=== PATIENT | female | born 1980 | race Caucasian/White ===

== ENCOUNTER 2017-04-27 06:32 | Day surgery (SDC) | payer BC, OTHER ==
--- NOTE | 2017-04-27 07:13 | PCM.PREANE ---
Preanesthetic Assessment - Anesthesia/Transfusion/Family Hx Anesthesia History: Prior Anesthesia Without Reaction Family History of Anesthesia Reaction: No Transfusion History: No Prior Transfusion(s) Intubation History: Unknown - Review of Systems General: No Symptoms Pulmonary: No Symptoms Cardiovascular: No Symptoms Gastrointestinal: No Symptoms Neurological: No Symptoms Other: Reports: None - Physical Assessment Height: 1.68 m Weight: 77.564 kg ASA Class: 1 Mental Status: Alert & Oriented x3 Airway Class: Mallampati = 2 Dentition: Reports: Normal Dentition Thyro-Mental Finger Breadths: 3 Mouth Opening Finger Breadths: 2 ROM/Head Extension: Full Lungs: Clear to Auscultation, Normal Respiratory Effort Cardiovascular: Regular Rate, Regular Rhythm - Allergies Allergies/Adverse Reactions: Allergies Allergy/AdvReac Type Severity Reaction Status Date / Time No Known Allergies Allergy Verified 07/04/15 19:12 - Blood Blood Available: No - Anesthesia Plan Pre-Op Medication Ordered: None - Acknowledgements Anesthesia Type Planned: General Anesthesia Pt an Appropriate Candidate for the Planned Anesthesia: Yes Alternatives and Risks of Anesthesia Discussed w Pt/Guardian: Yes Pt/Guardian Understands and Agrees with Anesthesia Plan: Yes PreAnesthesia Questionnaire HEENT History: Reports: None Cardiovascular History: Reports: Other (See Below) Other Cardiovascular History: hx of palpatations Respiratory History: Reports: None Gastrointestinal History: Reports: None Genitourinary History: Reports: UTI, Recurrent HATCH BOSS History: Reports: , Other (See Below) Other OB/BYN History: vaginal cyst excision. elective AB Musculoskeletal History: Reports: Neck Pain, Chronic Neurological History: Reports: Other (See Below) Other Neuro History: headaches caused from neck pain Psychiatric History: Reports: None Endocrine/Metabolic History: Reports: None Hematologic History: Reports: None Immunologic History: Reports: None Oncologic (Cancer) History: Reports: None Dermatologic History: Reports: None - Infectious Disease History Infectious Disease History: Reports: None - Past Surgical History Head Surgeries/Procedures: Reports: None HEENT Surgical History: Reports: Cataract Surgery, Eye Surgery Other HEENT Surgeries/Procedures: 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 [No Known Home Meds] 06/17/15 [History]
[2017-04-27] MEDS ORDERED: Lactated Ringers 1,000 ML IV SCH (07:15)
[2017-04-27] MEDS ORDERED: Midazolam 1 MG/ML 2 ML SDV ONE (07:23)
[2017-04-27] MEDS ORDERED: Ondansetron 4 MG/2 ML SDV ONE (07:23)
[2017-04-27] MEDS ORDERED: fentaNYL 100 MCG/2 ML SDV ONE (07:23)
[2017-04-27] MEDS ORDERED: Lidocaine 2% 5 ML SDV ONE (07:23)
[2017-04-27] MEDS ORDERED: Propofol 200 MG/20 ML SDV ONE (07:23)
[2017-04-27] MEDS ORDERED: Sodium Chloride 0.9% 10 ML Syringe FLUSH PRN (07:40)
[2017-04-27] MEDS ORDERED: Sodium Chloride 0.9% 2.5 ML Syringe FLUSH PRN (07:40)
--- NOTE | 2017-04-27 08:35 | PCM.OPNOTE ---
- General Post-Op/Procedure Note Date of Surgery/Procedure: 04/27/17 Operative Procedure(s): Suction D&C Findings: Products of conception Pre Op Diagnosis: 7 week missed Post-Op Diagnosis: Same Anesthesia Technique: General LMA Primary Surgeon: Nina Vee Fluid Replacement, Intraop: 1,500 EBL in mLs: 225 Condition: Good Free Text/Narrative:: Dictation [id number]
[2017-04-27 11:05] VITALS: BP 108/76
--- NOTE | 2017-04-27 15:06 | OR ---
SURGEON: Nina Vee M.D. DATE OF PROCEDURE: 04/27/2017 PREOPERATIVE DIAGNOSIS: Seven week missed . POSTOPERATIVE DIAGNOSIS: Seven week missed . PROCEDURE: Suction dilation and curettage. ESTIMATED BLOOD LOSS: 225 mL. FLUIDS: 1500 mL crystalloid. ANESTHESIA: General LMA. COMPLICATIONS: None known. FINDINGS: Products of conception. DISPOSITION: The patient to PACU in stable. INDICATIONS: Candy is a 36-year-old female, who was seen in clinic earlier this week for a new OB evaluation. Ultrasound identified a 7 week 5 day demise. She had been seen a couple of weeks earlier in the for bleeding and at that time, had a 7 week 1 day fetus with cardiac activity. The patient does note that she has not been feeling as sick or ill as usual and not as much breast tenderness. The findings are consistent with a first-trimester demise. Options were then discussed for further management and she opted to proceed with surgical intervention in the form of suction D and C. Risks of procedure have been discussed with her and proper consent obtained. DESCRIPTION OF PROCEDURE: The patient was taken to the operating room, where she underwent general LMA. She was placed in modified dorsal lithotomy position. She was prepped and draped in the usual sterile manner. SCDs to the lower extremities. Bladder was drained. A time-out was performed. Speculum was introduced in the vagina. Anterior of the cervix was grasped with an Allis clamp. The cervix easily dilated to 8 mm. Using 8-mm curved curette, this was introduced in the uterine cavity to the fundus and with suction being applied, the uterine cavity was cleared of products of conception. Gentle sharp curettage was now performed. It felt that the uterus was satisfactorily evacuated. All specimens will go to Pathology. Instruments removed from the vagina. Hemostasis appeared evident. Sponge and instrument count was correct x2. The patient tolerated the procedure well. She will go to PACU in stable condition. RAFAEL / TRISTAN /[id number]
== END 2017-04-27 10:30 | disposition home or self-care (01) ==
LOC: MW.SDS 06:32
PROVIDERS: ATTEND Obstetrics & Gynecology
DX: O43.811 Placental infarction, first trimester (principal); O02.1 Missed abortion; F53 Mental and behavioral disorders associated with the puerperium, not elsewhere classified; Z79.899 Other long term (current) drug therapy; Z87.891 Personal history of nicotine dependence; Z98.890 Other specified postprocedural states; Z3A.01 Less than 8 weeks gestation of pregnancy
CPT/HCPCS: 36415; 59820; 85027; 88305; J2250; J2405; J3010; J7120; 01965; J2704

== ENCOUNTER 2017-05-27 00:45 | Emergency (ER) | payer BC, OTHER ==
[2017-05-27] MEDS ORDERED: Sodium Chloride 0.9% 2.5 ML Syringe FLUSH PRN (00:48)
[2017-05-27] MEDS ORDERED: Sodium Chloride 0.9% 10 ML Syringe FLUSH PRN (00:48)
[2017-05-27] MEDS ORDERED: Sodium Chloride 0.9% 1,000 ML IV ONE (00:48)
--- NOTE | 2017-05-27 00:53 | EDM.PDOC ---
ED HPI GENERAL MEDICAL PROBLEM - General Chief Complaint: Drug or Alcohol Abuse Stated Complaint: AMBULANCE Time Seen by Provider: 05/27/17 00:46 - History of Present Illness INITIAL COMMENTS - FREE TEXT/NARRATIVE: HISTORY AND PHYSICAL: History of present illness: The patient is a 36 y/o female who presents via EMS after ingesting 12 tablets of Lexapro 10 mg sometime earlier this evening. The boyfriend gave EMS all information and called the paramedics. The patient did tell police when they were there that she is "not worth anything" and that is why she took the pills. The patient had the Lexapro refilled yesterday. When police and EMS arrived she was somewhat drowsy and combative. But that has subsided. The prescription was given to her by Dr. Vee and was filled yesterday on May 25. The whole prescription was for 30 tablets. The boyfriend did state that the patient did drink some alcohol as well as evening and there was no vomiting at the scene. There was no trauma per EMS and the patient was found in bed. As he said initially she was somewhat combative and they contacted me or possible medications to relax her but currently she is not combative and actually not verbal.. She is not offering any history and is not following commands. She is maintaining her airway. Further history as to why the patient took this overdose is unclear at this point. Please note that paramedics brought the pill bottle of Lexapro and the remainder of the pills that were prescribed are in there. Review of systems: As per history of present illness and below otherwise all systems reviewed and negative. Past medical history: As per history of present illness and as reviewed below otherwise noncontributory. Surgical history: As per history of present illness and as reviewed below otherwise noncontributory. Social history: No reported history of drug or alcohol abuse. Family history: As per history of present illness and as reviewed below otherwise noncontributory. Physical exam: Gen.: Well-developed well-nourished overweight female who is nontoxic and vital signs were noted by me. She is maintaining her airway without difficulty and resists me opening her eyes. HEENT: Atraumatic, normocephalic, pupils reactive, negative for conjunctival pallor or scleral icterus, mucous membranes moist, throat clear, neck supple, nontender, trachea midline. Lungs: Clear to auscultation, breath sounds equal bilaterally, chest nontender. Heart: S1S2, regular, negative for clicks, rubs, or JVD. Abdomen: Soft, nondistended, nontender. Negative for masses or hepatosplenomegaly. NABS Pelvis: Stable nontender. Genitourinary: Deferred. Rectal: Deferred. Extremities: Atraumatic, negative for cords or calf pain. Neurovascular unremarkable. No visible or palpable deformities Neuro: Drowsy but maintaining her airway and does resist certain evaluation. She has no spontaneous movement of her extremities but tone is normal throughout. Further exam is unable to be performed at this time . Skin: No diaphoresis normal turgor and no evidence of any overt rashes or lesions Diagnostics: EKG UA UCG UDS CBC CMP Tylenol and aspirin levels alcohol level TSH Therapeutics: IV O2 monitor IV fluids We'll contact poison control Poison control was contacted per nursing and they agree with my care plan and asked us to just observe for her somnolence respiratory issues and seizures. They recommended overnight medical observation 0120: Dr Flores was notified of this patient and will pass on the case information to Dr. Vee who is the prescribing physician for the Lexapro. 0151: Case was discussed with our hospitalist Dr. Haines to see if he would observe her medically and then plan for transfer tomorrow and he feels that as she will definitely need psychiatric transfer he would prefer that we just do the transfer now so that can care for her both medically and psychiatrically. 0155: Case was discussed with Dr. Mireles in the ED at [facility] who accepts the patient for transfer. He is aware that poison control recommended overnight medical observation and although she is moving around more spontaneously and more responsive to pain and stimulation she is still very drowsy. She is stable for ground transfer. LINO was performed by me although the [employer] police that came with her offered to do so. I will continue to monitor all testing results and recontact Dr. Mireles with any abnormalities that are significant. Impression: Intentional drug overdose with Lexapro Definitive disposition and diagnosis as appropriate pending reevaluation and review of above. unable to obtain Pain Score (Numeric/FACES): 0 - Related Data Allergies Allergy/AdvReac Type Severity Reaction Status Date / Time No Known Allergies Allergy Verified 05/27/17 00:47 Home Meds: Home Meds . 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 elective AB Musculoskeletal History: Reports: Neck Pain, Chronic Neurological History: Reports: Other (See Below) Other Neuro History: headaches caused from neck pain Psychiatric History: Reports: None Endocrine/Metabolic History: Reports: None Hematologic History: Reports: None Immunologic History: Reports: None Oncologic (Cancer) History: Reports: None Dermatologic History: Reports: None - Infectious Disease History Infectious Disease History: Reports: None - Past Surgical History Head Surgeries/Procedures: Reports: None HEENT Surgical History: Reports: Cataract Surgery, Eye Surgery Other HEENT Surgeries/Procedures: 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, cataract surgery approx 4 yrs ago Cardiovascular Surgical History: Reports: None GI Surgical History: Reports: None Female Surgical History: Reports: Other (See Below) Other Female Surgeries/Procedures: cyst removed from vaginal area Endocrine Surgical History: Reports: None Neurological Surgical History: Reports: None Musculoskeletal Surgical History: Reports: None Oncologic Surgical History: Reports: None Social & Family History - Family History Family Medical History: Noncontributory Cardiac: Reports: CAD, Hypertension, Other (See Below) Other Cardiac Family History: heart problems (patient dont know specificts of it ) Respiratory: Reports: None GI: Reports: None : Reports: None OBGYN: Reports: None Musculoskeletal: Reports: None Endocrine/Metabolic: Reports: Diabetes, type II - Tobacco Use Smoking Status *Q: Former Smoker Used Tobacco, but Quit: Yes Month Tobacco Last Used: quit smoking 3 months ago - Recreational Drug Use Recreational Drug Use: No ED ROS GENERAL - Review of Systems Review Of Systems: ROS reveals no pertinent complaints other than HPI. ED EXAM, GENERAL - Physical Exam Exam: See Below (See dictation) Course - Vital Signs Last Recorded V/S: Last Vital Signs Temp 36.1 C 05/27/17 00:47 Pulse 95 05/27/17 01:19 Resp 18 05/27/17 01:19 BP 124/90 05/27/17 01:19 Pulse Ox 95 05/27/17 01:19 - Orders/Labs/Meds Orders: Active Orders 24 hr Category Date Time Status Cardiac Monitoring [RC] . DIRECTED Care 05/27/17 00:47 Active EKG Documentation Completion [RC] STAT Care 05/27/17 00:47 Active Oxygen Therapy, ED [RC] ASDIRECTED Care 05/27/17 00:47 Active Pulse Oximetry [RC] ASDIRECTED Care 05/27/17 00:47 Active ACETAMINOPHEN [CHEM] Stat Lab 05/27/17 01:00 Received COMPREHENSIVE METABOLIC PN,CMP [CHEM] Stat Lab 05/27/17 01:00 Received ETHANOL BLOOD MEDICAL [CHEM] Stat Lab 05/27/17 01:00 Received SALICYLATE [CHEM] Stat Lab 05/27/17 01:00 Received TSH [CHEM] Stat Lab 05/27/17 01:00 Received Sodium Chloride 0.9% [Saline Flush] Med 05/27/17 00:48 Active 10 ml FLUSH ASDIRECTED PRN Sodium Chloride 0.9% [Saline Flush] Med 05/27/17 00:48 Active 2.5 ml FLUSH ASDIRECTED PRN Saline Lock Insert [OM.PC] Stat Oth 05/27/17 00:47 Ordered Medication Orders Sodium Chloride (Saline Flush) 10 ml FLUSH ASDIRECTED PRN PRN Reason: Keep Vein Open Sodium Chloride (Saline Flush) 2.5 ml FLUSH ASDIRECTED PRN PRN Reason: Keep Vein Open Labs: Laboratory Tests 05/27/17 05/27/17 05/27/17 Range/Units 01:00 01:20 01:20 WBC 5.65 (4.0-11.0) K/uL RBC 4.15 L (4.30-5.90) M/uL Hgb 12.6 (12.0-16.0) g/dL Hct 38.8 (36.0-46.0) % MCV 93.5 (80.0-98.0) fL MCH 30.4 (27.0-32.0) pg MCHC 32.5 (31.0-37.0) g/dL RDW Std Deviation 43.0 (28.0-62.0) fl RDW Coeff of Mindy 13 (11.0-15.0) % Plt Count 226 (150-400) K/uL MPV 8.10 (7.40-12.00) fL Neut % (Auto) 48.7 (48.0-80.0) % Lymph % (Auto) 37.5 (16.0-40.0) % [place] % (Auto) 10.1 (0.0-15.0) % Eos % (Auto) 3.5 (0.0-7.0) % Baso % (Auto) 0.2 (0.0-1.5) % Neut # (Auto) 2.8 (1.4-5.7) K/uL Lymph # (Auto) 2.1 (0.6-2.4) K/uL [place] # (Auto) 0.6 (0.0-0.8) K/uL Eos # (Auto) 0.2 (0.0-0.7) K/uL Baso # (Auto) 0.0 (0.0-0.1) K/uL Urine Color Urine Appearance Urine pH (5.0-8.0) Ur Specific [place] (1.001-1.035) Urine Protein (NEGATIVE) mg/dL Urine Glucose (UA) (NEGATIVE) mg/dL Urine Ketones (NEGATIVE) mg/dL Urine Occult Blood (NEGATIVE) Urine Nitrite (NEGATIVE) Urine Bilirubin (NEGATIVE) Urine Urobilinogen (<2.0) EU/dL Ur Leukocyte Esterase (NEGATIVE) Urine RBC (0-2/HPF) Urine WBC (0-5/HPF) Ur Epithelial Cells (NONE-FEW) Urine Bacteria (NEGATIVE) Urine HCG, Qual NEGATIVE (NEGATIVE) Urine Opiates Screen NEGATIVE (NEGATIVE) Ur Oxycodone Screen NEGATIVE (NEGATIVE) Urine Methadone Screen NEGATIVE (NEGATIVE) Ur Barbiturates Screen NEGATIVE (NEGATIVE) Ur Phencyclidine Scrn NEGATIVE (NEGATIVE) Ur Amphetamine Screen NEGATIVE (NEGATIVE) U Methamphetamines Scrn NEGATIVE (NEGATIVE) U Benzodiazepines Scrn NEGATIVE (NEGATIVE) U Cocaine Metab Screen NEGATIVE (NEGATIVE) U Marijuana (THC) Screen NEGATIVE (NEGATIVE) 05/27/17 Range/Units 01:20 WBC (4.0-11.0) K/uL RBC (4.30-5.90) M/uL Hgb (12.0-16.0) g/dL Hct (36.0-46.0) % MCV (80.0-98.0) fL MCH (27.0-32.0) pg MCHC (31.0-37.0) g/dL RDW Std Deviation (28.0-62.0) fl RDW Coeff of Mindy (11.0-15.0) % Plt Count (150-400) K/uL MPV (7.40-12.00) fL Neut % (Auto) (48.0-80.0) % Lymph % (Auto) (16.0-40.0) % [place] % (Auto) (0.0-15.0) % Eos % (Auto) (0.0-7.0) % Baso % (Auto) (0.0-1.5) % Neut # (Auto) (1.4-5.7) K/uL Lymph # (Auto) (0.6-2.4) K/uL [place] # (Auto) (0.0-0.8) K/uL Eos # (Auto) (0.0-0.7) K/uL Baso # (Auto) (0.0-0.1) K/uL Urine Color YELLOW Urine Appearance CLEAR Urine pH 6.0 (5.0-8.0) Ur Specific [place] <= 1.005 (1.001-1.035) Urine Protein NEGATIVE (NEGATIVE) mg/dL Urine Glucose (UA) NEGATIVE (NEGATIVE) mg/dL Urine Ketones NEGATIVE (NEGATIVE) mg/dL Urine Occult Blood NEGATIVE (NEGATIVE) Urine Nitrite NEGATIVE (NEGATIVE) Urine Bilirubin NEGATIVE (NEGATIVE) Urine Urobilinogen 0.2 (<2.0) EU/dL Ur Leukocyte Esterase NEGATIVE (NEGATIVE) Urine RBC 0-1 (0-2/HPF) Urine WBC 0-1 (0-5/HPF) Ur Epithelial Cells RARE (NONE-FEW) Urine Bacteria RARE (NEGATIVE) Urine HCG, Qual (NEGATIVE) Urine Opiates Screen (NEGATIVE) Ur Oxycodone Screen (NEGATIVE) Urine Methadone Screen (NEGATIVE) Ur Barbiturates Screen (NEGATIVE) Ur Phencyclidine Scrn (NEGATIVE) Ur Amphetamine Screen (NEGATIVE) U Methamphetamines Scrn (NEGATIVE) U Benzodiazepines Scrn (NEGATIVE) U Cocaine Metab Screen (NEGATIVE) U Marijuana (THC) Screen (NEGATIVE) Meds: Medications Generic Name Dose Route Start Last Admin Trade Name Freq PRN Reason Stop Dose Admin Sodium Chloride 10 ml 05/27/17 00:48 Saline Flush FLUSH ASDIRECTED PRN Keep Vein Open Sodium Chloride 2.5 ml 05/27/17 00:48 Saline Flush FLUSH ASDIRECTED PRN Keep Vein Open Discontinued Medications Generic Name Dose Route Start Last Admin Trade Name Berhane PRN Reason Stop Dose Admin Sodium Chloride 1,000 mls @ 999 mls/hr 05/27/17 00:48 05/27/17 01:04 Normal Saline IV 05/27/17 01:48 999 mls/hr STAT ONE Administration Departure - Departure Time of Disposition: 01:59 Disposition: DC/Tfer to Acute Hospital 02 Condition: Good Clinical Impression: Drug overdose, intentional Qualifiers: Encounter type: initial encounter Qualified Code(s): T50.902A - Poisoning by unspecified drugs, medicaments and biological substances, intentional self-harm , initial encounter - Discharge Information Referrals: PCP,None [Primary Care Provider] - Forms: ED Department Discharge - My Orders Last 24 Hours: My Active Orders 05/27/17 00:47 Cardiac Monitoring [RC] . DIRECTED EKG Documentation Completion [RC] STAT Oxygen Therapy, ED [RC] ASDIRECTED Pulse Oximetry [RC] ASDIRECTED Saline Lock Insert [OM.PC] Stat 05/27/17 00:48 Sodium Chloride 0.9% [Saline Flush] 10 ml FLUSH ASDIRECTED PRN Sodium Chloride 0.9% [Saline Flush] 2.5 ml FLUSH ASDIRECTED PRN 05/27/17 01:00 ACETAMINOPHEN [CHEM] Stat COMPREHENSIVE METABOLIC PN,CMP [CHEM] Stat ETHANOL BLOOD MEDICAL [CHEM] Stat SALICYLATE [CHEM] Stat TSH [CHEM] Stat - Assessment/Plan Last 24 Hours: My Active Orders 05/27/17 00:47 Cardiac Monitoring [RC] . DIRECTED EKG Documentation Completion [RC] STAT Oxygen Therapy, ED [RC] ASDIRECTED Pulse Oximetry [RC] ASDIRECTED Saline Lock Insert [OM.PC] Stat 05/27/17 00:48 Sodium Chloride 0.9% [Saline Flush] 10 ml FLUSH ASDIRECTED PRN Sodium Chloride 0.9% [Saline Flush] 2.5 ml FLUSH ASDIRECTED PRN 05/27/17 01:00 ACETAMINOPHEN [CHEM] Stat COMPREHENSIVE METABOLIC PN,CMP [CHEM] Stat ETHANOL BLOOD MEDICAL [CHEM] Stat SALICYLATE [CHEM] Stat TSH [CHEM] Stat
[2017-05-27 01:32] LABS: ACETAMINOPHEN < 3.0 ug/mL; CHLORIDE,CL 107 mmol/L (98-110); SODIUM,NA 138 mmol/L (136-146)
[2017-05-27] MEDS ORDERED: Dextrose 5%-0.45% NaCl 1,000 ML IV SCH (02:30)
[2017-05-27 02:47] VITALS: BP 119/75
== END 2017-05-27 02:40 ==
LOC: MW.ED 00:45
DX: T43.222A Poisoning by selective serotonin reuptake inhibitors, intentional self-harm, initial encounter (principal); F10.129 Alcohol abuse with intoxication, unspecified; Z87.891 Personal history of nicotine dependence
CPT/HCPCS: 36415; 80053; 80305; 81001; 81025; 84443; 85025; 96360; 99285; G0480; J7040; J7042

== ENCOUNTER 2017-11-06 18:48 | Emergency (ER) | payer BC, OTHER ==
[2017-11-06 19:13] VITALS: BP 130/86
[2017-11-06] MEDS ORDERED: Phenazopyridine 200 MG Tab PO ONE (19:21)
--- NOTE | 2017-11-06 19:21 | EDM.PDOC ---
ED HPI GENERAL MEDICAL PROBLEM - General Chief Complaint: Genitourinary Problem Stated Complaint: UTI Time Seen by Provider: 11/06/17 19:10 - History of Present Illness INITIAL COMMENTS - FREE TEXT/NARRATIVE: HISTORY AND PHYSICAL: History of present illness: The patient is a healthy 36 y/o female who presents with a three-day history of dysuria frequency urgency CONSISTENT with the UTI and she has had a history of UTIs in the past with the last one being about a year ago. The patient denies any fevers chills flank pain abdominal pain vomiting or diarrhea but does have pressure in the suprapubic area. She has a Mirena in place and has no abdominal surgical history. She has been pushing fluids and eating normally. The patient started [id number] Azo last evening but does not feel that that's helping very much. She does not have a local provider and usually seeks care at [facility] Review of systems: As per history of present illness and below otherwise all systems reviewed and negative. Past medical history: As per history of present illness and as reviewed below otherwise noncontributory. Surgical history: As per history of present illness and as reviewed below otherwise noncontributory. Social history: No reported history of drug or alcohol abuse. Family history: As per history of present illness and as reviewed below otherwise noncontributory. Physical exam: General: Well-developed well-nourished female who is nontoxic and vital signs are reviewed by me HEENT: Atraumatic, normocephalic, negative for conjunctival pallor or scleral icterus, mucous membranes moist, throat clear, neck supple, nontender, trachea midline. Lungs: Clear to auscultation, breath sounds equal bilaterally, chest nontender. Heart: S1S2, regular rate and rhythm no overt murmurs Abdomen: Soft, nondistended, nontender. NABS Negative for costovertebral tenderness. Pelvis: Deferred Genitourinary: Deferred. Rectal: Deferred. Extremities: Atraumatic, negative for cords or calf pain. Neurovascular unremarkable. Neuro: Awake, alert, oriented. Cranial nerves II through XII unremarkable. Cerebellum unremarkable. Motor and sensory unremarkable throughout. Exam nonfocal. Diagnostics: UA UCG urine culture Therapeutics: She requests Pyridium Impression: UTI Definitive disposition and diagnosis as appropriate pending reevaluation and review of above. 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 elective AB Musculoskeletal History: Reports: Neck Pain, Chronic Neurological History: Reports: Other (See Below) Other Neuro History: headaches caused from neck pain Psychiatric History: Reports: None Endocrine/Metabolic History: Reports: None Hematologic History: Reports: None Immunologic History: Reports: None Oncologic (Cancer) History: Reports: None Dermatologic History: Reports: None - Infectious Disease History Infectious Disease History: Reports: None - Past Surgical History Head Surgeries/Procedures: Reports: None HEENT Surgical History: Reports: Cataract Surgery, Eye Surgery Other HEENT Surgeries/Procedures: 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, cataract surgery approx 4 yrs ago Cardiovascular Surgical History: Reports: None GI Surgical History: Reports: None Female Surgical History: Reports: Other (See Below) Other Female Surgeries/Procedures: cyst removed from vaginal area Endocrine Surgical History: Reports: None Neurological Surgical History: Reports: None Musculoskeletal Surgical History: Reports: None Oncologic Surgical History: Reports: None Social & Family History - Family History Family Medical History: Noncontributory Cardiac: Reports: CAD, Hypertension, Other (See Below) Other Cardiac Family History: heart problems (patient dont know specificts of it ) Respiratory: Reports: None GI: Reports: None : Reports: None OBGYN: Reports: None Musculoskeletal: Reports: None Endocrine/Metabolic: Reports: Diabetes, type II - Tobacco Use Smoking Status *Q: Light Tobacco Smoker Years of Tobacco use: 5 Packs/Tins Daily: 0.1 - Recreational Drug Use Recreational Drug Use: No ED ROS GENERAL - Review of Systems Review Of Systems: ROS reveals no pertinent complaints other than HPI. ED EXAM, GENERAL - Physical Exam Exam: See Below (see dictation) Course - Vital Signs Last Recorded V/S: Last Vital Signs Temp 36.7 C 11/06/17 19:12 Pulse 100 11/06/17 19:12 Resp 18 11/06/17 19:12 BP 130/86 11/06/17 19:12 Pulse Ox 95 11/06/17 19:12 - Orders/Labs/Meds Orders: Active Orders 24 hr Category Date Time Status CULTURE URINE [RM] Stat Lab 11/06/17 19:19 Ordered HCG QUALITATIVE,URINE [URCHEM] Stat Lab 11/06/17 19:19 Ordered UA W/MICROSCOPIC [URIN] Stat Lab 11/06/17 19:19 Ordered Labs: Laboratory Tests 11/06/17 11/06/17 Range/Units 19:19 19:19 Urine Color YELLOW Urine Appearance CLEAR Urine pH 5.5 (5.0-8.0) Ur Specific [place] <= 1.005 (1.001-1.035) Urine Protein >=300 (NEGATIVE) mg/dL Urine Glucose (UA) 100 H (NEGATIVE) mg/dL Urine Ketones NEGATIVE (NEGATIVE) mg/dL Urine Occult Blood MODERATE (NEGATIVE) Urine Nitrite POSITIVE H (NEGATIVE) Urine Bilirubin NEGATIVE (NEGATIVE) Urine Urobilinogen 4.0 H (<2.0) EU/dL Ur Leukocyte Esterase MODERATE (NEGATIVE) Urine RBC 1-2 (0-2/HPF) Urine WBC 30-40 (0-5/HPF) Ur Epithelial Cells FEW (NONE-FEW) Urine Bacteria FEW (NEGATIVE) Urine HCG, Qual NEGATIVE (NEGATIVE) Meds: Medications Discontinued Medications Generic Name Dose Route Start Last Admin Trade Name Freq PRN Reason Stop Dose Admin Phenazopyridine HCl 200 mg 11/06/17 19:21 11/06/17 19:30 Pyridium PO 11/06/17 19:22 200 mg ONETIME ONE Administration Departure - Departure Time of Disposition: 19:43 Disposition: Home, Self-Care 01 Condition: Good Clinical Impression: UTI, Urinary tract infectious disease - Discharge Information Instructions: Urinary Tract Infection, Adult, [id number] Referrals: PCP,None [Primary Care Provider] - Forms: ED Department Discharge Additional Instructions: The following information is given to patients seen in the emergency department who are being discharged to home. This information is to outline your options for follow-up care. We provide all patients seen in our emergency department with a follow-up referral. The need for follow-up, as well as the timing and circumstances, are variable depending upon the specifics of your emergency department visit. If you don't have a primary care physician on staff, we will provide you with a referral. We always advise you to contact your personal physician following an emergency department visit to inform them of the circumstance of the visit and for follow-up with them and/or the need for any referrals to a consulting specialist. The emergency department will also refer you to a specialist when appropriate. This referral assures that you have the opportunity for followup care with a specialist. All of these measure are taken in an effort to provide you with optimal care, which includes your followup. Under all circumstances we always encourage you to contact your private physician who remains a resource for coordinating your care. When calling for followup care, please make the office aware that this follow-up is from your recent emergency room visit. If for any reason you are refused follow-up, please contact the [facility] emergency department at and ask to speak to the emergency department charge nurse. [facility] Primary care- [place] [address] Push hydration and take all medications as prescribed. You may also use over-the -counter Tylenol or ibuprofen for pain. Please schedule a follow-up appointment at your clinic or contact our clinic for follow-up in the next few days and return to ER as needed and as discussed - My Orders Last 24 Hours: My Active Orders 11/06/17 19:19 CULTURE URINE [RM] Stat HCG QUALITATIVE,URINE [URCHEM] Stat UA W/MICROSCOPIC [URIN] Stat - Assessment/Plan Last 24 Hours: My Active Orders 11/06/17 19:19 CULTURE URINE [RM] Stat HCG QUALITATIVE,URINE [URCHEM] Stat UA W/MICROSCOPIC [URIN] Stat
== END 2017-11-06 19:49 | disposition home or self-care (01) ==
LOC: MW.ED 18:48
DX: N39.0 Urinary tract infection, site not specified (principal); F17.210 Nicotine dependence, cigarettes, uncomplicated
CPT/HCPCS: 81001; 81025; 87086; 87088; 87186; 99283; A9270

== ENCOUNTER 2018-02-04 10:48 | Emergency (ER) | payer BC, OTHER ==
[2018-02-04] MEDS ORDERED: diphenhydrAMINE 50 MG/ML SDV IVPUSH ONE (11:20)
[2018-02-04] MEDS ORDERED: Ketorolac 30 MG/ML SDV IVPUSH ONE (11:20)
[2018-02-04] MEDS ORDERED: Sodium Chloride 0.9% 1,000 ML IV ONE (11:20)
[2018-02-04] MEDS ORDERED: Metoclopramide 10 MG/2 ML SDV IV ONE (11:20)
--- NOTE | 2018-02-04 11:29 | EDM.PDOC ---
<Clement Kim - Last Filed: 02/04/18 12:06> ED HPI GENERAL MEDICAL PROBLEM - General Chief Complaint: Headache Stated Complaint: HEADACHE Time Seen by Provider: 02/04/18 11:09 - History of Present Illness INITIAL COMMENTS - FREE TEXT/NARRATIVE: Patient emerged from course has been unremarkable she has significant improvement with headache and is eager for discharge she'll be discharged diagnosis of chronic headache she'll be given neurology for referral she is to return as needed as discussed patient's exam had normal testes no penile lesions no discharge no hernia - Related Data Allergies Allergy/AdvReac Type Severity Reaction Status Date / Time No Known Allergies Allergy Verified 02/04/18 11:03 Home Meds: Home Meds Levonorgestrel [Mirena] 1 device IUTERINE ONETIME 11/06/17 [History] - Physical Exam Exam: See Below (See dictation) Course - Vital Signs Last Recorded V/S: Last Vital Signs Temp 97.1 F 02/04/18 12:32 Pulse 79 02/04/18 12:32 Resp 16 02/04/18 12:32 BP 112/68 02/04/18 12:32 Pulse Ox 100 02/04/18 12:32 - Orders/Labs/Meds Meds: Medications Discontinued Medications Generic Name Dose Route Start Last Admin Trade Name Berhane PRN Reason Stop Dose Admin Diphenhydramine HCl 50 mg 02/04/18 11:20 02/04/18 11:33 Benadryl IVPUSH 02/04/18 11:21 50 mg ONETIME ONE Administration Sodium Chloride 1,000 mls @ 999 mls/hr 02/04/18 11:20 02/04/18 11:30 Normal Saline IV 02/04/18 12:20 999 mls/hr STAT ONE Administration Ketorolac Tromethamine 30 mg 02/04/18 11:20 02/04/18 11:35 Toradol IVPUSH 02/04/18 11:21 30 mg ONETIME ONE Administration Metoclopramide HCl 10 mg 02/04/18 11:20 02/04/18 11:44 Reglan IV 02/04/18 11:21 10 mg ONETIME ONE Administration Departure - Departure Time of Disposition: 12:06 Disposition: Home, Self-Care 01 Condition: Good Clinical Impression: Cephalgia - Discharge Information *PRESCRIPTION DRUG MONITORING PROGRAM REVIEWED*: Not Applicable *COPY OF PRESCRIPTION DRUG MONITORING REPORT IN PATIENT SACHI: Not Applicable Instructions: General Headache Without Cause, [id number] Referrals: PCP,None [Primary Care Provider] - Forms: ED Department Discharge Additional Instructions: The following information is given to patients seen in the emergency department who are being discharged to home. This information is to outline your options for follow-up care. We provide all patients seen in our emergency department with a follow-up referral. The need for follow-up, as well as the timing and circumstances, are variable depending upon the specifics of your emergency department visit. If you don't have a primary care physician on staff, we will provide you with a referral. We always advise you to contact your personal physician following an emergency department visit to inform them of the circumstance of the visit and for follow-up with them and/or the need for any referrals to a consulting specialist. The emergency department will also refer you to a specialist when appropriate. This referral assures that you have the opportunity for followup care with a specialist. All of these measure are taken in an effort to provide you with optimal care, which includes your followup. Under all circumstances we always encourage you to contact your private physician who remains a resource for coordinating your care. When calling for followup care, please make the office aware that this follow-up is from your recent emergency room visit. If for any reason you are refused follow-up, please contact the [facility] emergency department at and asked to speak to the emergency department charge nurse. [facility] [address], [address] [place] [address] Follow-up primary medical doctor and neurology above as discussed return as needed as discussed <Irina Fabian - Last Filed: 02/04/18 14:13> ED HPI GENERAL MEDICAL PROBLEM - History of Present Illness INITIAL COMMENTS - FREE TEXT/NARRATIVE: HISTORY AND PHYSICAL: History of present illness: The patient is a 37-year-old female presents to the ER with headache/migraine. Patient reports she has never been formally diagnosed with migraines and has never seen a neurologist. She reports she has had a scan of her head a few years ago but doesn't believe they found anything. Her headache started this morning. She describes it as a constant shooting pain throughout her whole head. She rates it a 9 out of 10. She notes that she gets these kind of headaches every week. This headache is not different than her previous headaches. She has some associated nausea and vomiting but no vision changes or neurologic deficits. She complains of photophobia but no phonophobia. She took an aspirin at home without relief. She normally is able to sleep these off with ibuprofen. [] Review of systems: As per history of present illness and below otherwise all systems reviewed and negative. Past medical history: As per history of present illness and as reviewed below otherwise noncontributory. Surgical history: As per history of present illness and as reviewed below otherwise noncontributory. Social history: No reported history of drug or alcohol abuse. Family history: As per history of present illness and as reviewed below otherwise noncontributory. Physical exam: HEENT: Atraumatic, normocephalic, pupils reactive, negative for conjunctival pallor or scleral icterus, mucous membranes moist, throat clear, neck supple, nontender, trachea midline. Lungs: Clear to auscultation, breath sounds equal bilaterally, chest nontender. Heart: S1S2, regular, negative for clicks, rubs, or JVD. Abdomen: Soft, nondistended, nontender. Negative for masses or hepatosplenomegaly. Negative for costovertebral tenderness. Pelvis: Stable nontender. Genitourinary: Deferred. Rectal: Deferred. Extremities: Atraumatic, negative for cords or calf pain. Neurovascular unremarkable. Neuro: Awake, alert, oriented. Cranial nerves II through XII unremarkable. Cerebellum unremarkable. Motor and sensory unremarkable throughout. Exam nonfocal. Diagnostics: [] Therapeutics: [IV fluids, 30 mg Toradol, 50 mg of Benadryl, and 10 mg of Reglan] Impression: [#1 Headache/migraine] Plan: [] Definitive disposition and diagnosis as appropriate pending reevaluation and review of above. 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 elective AB Musculoskeletal History: Reports: Neck Pain, Chronic Neurological History: Reports: Other (See Below) Other Neuro History: headaches caused from neck pain Psychiatric History: Reports: None Endocrine/Metabolic History: Reports: None Hematologic History: Reports: None Immunologic History: Reports: None Oncologic (Cancer) History: Reports: None Dermatologic History: Reports: None - Infectious Disease History Infectious Disease History: Reports: None - Past Surgical History Head Surgeries/Procedures: Reports: None HEENT Surgical History: Reports: Cataract Surgery, Eye Surgery Other HEENT Surgeries/Procedures: 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, cataract surgery approx 4 yrs ago Cardiovascular Surgical History: Reports: None GI Surgical History: Reports: None Female Surgical History: Reports: Other (See Below) Other Female Surgeries/Procedures: cyst removed from vaginal area Endocrine Surgical History: Reports: None Neurological Surgical History: Reports: None Musculoskeletal Surgical History: Reports: None Oncologic Surgical History: Reports: None Social & Family History - Family History Family Medical History: Noncontributory Cardiac: Reports: CAD, Hypertension, Other (See Below) Other Cardiac Family History: heart problems (patient dont know specificts of it ) Respiratory: Reports: None GI: Reports: None : Reports: None OBGYN: Reports: None Musculoskeletal: Reports: None Endocrine/Metabolic: Reports: Diabetes, type II - Tobacco Use Smoking Status *Q: Never Smoker Second Hand Smoke Exposure: No - Caffeine Use Caffeine Use: Reports: Coffee, Energy Drinks, Soda, Tea - Recreational Drug Use Recreational Drug Use: No ED ROS GENERAL - Review of Systems Review Of Systems: See Below (see dictation) Course - Orders/Labs/Meds Meds: Medications Discontinued Medications Generic Name Dose Route Start Last Admin Trade Name Freq PRN Reason Stop Dose Admin Diphenhydramine HCl 50 mg 02/04/18 11:20 02/04/18 11:33 Benadryl IVPUSH 02/04/18 11:21 50 mg ONETIME ONE Administration Sodium Chloride 1,000 mls @ 999 mls/hr 02/04/18 11:20 02/04/18 11:30 Normal Saline IV 02/04/18 12:20 999 mls/hr STAT ONE Administration Ketorolac Tromethamine 30 mg 02/04/18 11:20 02/04/18 11:35 Toradol IVPUSH 02/04/18 11:21 30 mg ONETIME ONE Administration Metoclopramide HCl 10 mg 02/04/18 11:20 02/04/18 11:44 Reglan IV 02/04/18 11:21 10 mg ONETIME ONE Administration
[2018-02-04 12:33] VITALS: BP 112/68
== END 2018-02-04 12:32 | disposition home or self-care (01) ==
LOC: MW.ED 10:48
DX: R51 Headache (principal)
CPT/HCPCS: 96361; 96374; 96375; 99283; J1200; J1885; J2765; J7040

== ENCOUNTER 2018-06-29 11:36 | Emergency (ER) | payer BC, OTHER ==
[2018-06-29] MEDS ORDERED: Ondansetron 4 MG/2 ML SDV IVPUSH ONE ×2 (11:39→12:19)
[2018-06-29] MEDS ORDERED: Sodium Chloride 0.9% 1,000 ML IV ONE (11:39)
--- NOTE | 2018-06-29 11:39 | EDM.PDOCBH ---
ED HPI GENERAL MEDICAL PROBLEM - General Stated Complaint: OVERDOSE Time Seen by Provider: 06/29/18 11:38 Source of Information: Reports: Patient History Limitations: Reports: No Limitations - History of Present Illness INITIAL COMMENTS - FREE TEXT/NARRATIVE: HISTORY AND PHYSICAL: History of present illness: Patient is a 37-year-old female who is brought to the emergency room by ambulance after an intentional overdose. Parents had called EMS for assistance after the patient was found with decreased responsiveness and had appeared to have taken multiple tablets of her Lexapro. The ingestion was not witnessed. EMS arrival the patient appears drowsy but does respond to physical arousal and strong verbal cues. Vital signs have been stable, blood sugar upon arrival was 121. Breathing has been easy and even on her own. Review of systems: As per history of present illness and below otherwise all systems reviewed and negative. Past medical history: As per history of present illness and as reviewed below otherwise noncontributory. Surgical history: As per history of present illness and as reviewed below otherwise noncontributory. Social history: See social history for further information Family history: As per history of present illness and as reviewed below otherwise noncontributory. Physical exam: General: Well-developed and well-nourished 37-year-old female. She appears drowsy but is arousable with physical stimulation. HEENT: Nontender with palpation, normocephalic, pupils equal and reactive bilaterally, negative for conjunctival pallor or scleral icterus, mucous membranes moist, TMs normal bilaterally, throat clear, neck supple, nontender, trachea midline. No drooling or trismus noted. No meningeal signs. No hot potato voice noted. Lungs: Clear to auscultation, breath sounds equal bilaterally, chest nontender. Heart: S1S2, regular rate and rhythm without overt murmur Abdomen: Soft, nondistended, nontender. Negative for masses or hepatosplenomegaly. Negative for costovertebral tenderness. Pelvis: Stable nontender. Genitourinary: Deferred. Rectal: Deferred. Skin: Intact, warm, dry. No lesions or rashes noted. Extremities: Moves all per self, appears to have no pain to her extremities. Neurovascular unremarkable. Neuro: Drowsiness. Cranial nerves II through XII unremarkable. Cerebellum unremarkable. Motor and sensory unremarkable throughout. Exam nonfocal. Notes: Poison control was contacted by nursing staff. Encouraged to continue monitoring for sedation and tachycardia. Seizure precautions. Observe for [address] Peoples at [facility] in [place] was consult did on this patient. He is agreeable to accepting this patient as she does need medical evaluation over the next 24 hours than likely a psychiatric consult for the intentional overdose. We'll update him on all diagnostics that returned prior to her being transferred. There is a delay in transfer as are EMS crew is unavailable for another hour. Patient remained stable. Vital signs are within normal limits. She is easily arousable. Prior to patient transfer she is talking with staff. Vital signs remain stable. Lab work does show that her urine is positive for methamphetamines. Possible early urinary tract infection, culture has been added. Thyroid level is low, no previous history of this noted. Diagnostics: CBC, CMP, UA, urine , drug screen, acetaminophen, salicylate, EKG, hospital monitor, Therapeutics: IV fluid Impression: Intentional Overdose Substance abuse Hyperthyroidism Plan: Transfer via ground EMS to [facility] in [place] - Dr Peoples Definitive disposition and diagnosis as appropriate pending reevaluation and review of above. - Related Data Allergies Allergy/AdvReac Type Severity Reaction Status Date / Time No Known Allergies Allergy Verified 06/29/18 11:47 Home Meds: Home Meds Cyclobenzaprine [Flexeril] 100 mg PO BID PRN 06/29/18 [History] Escitalopram [Lexapro] 10 mg PO DAILY 06/29/18 [History] Meloxicam 7.5 mg PO DAILY 06/29/18 [History] SUMAtriptan [Imitrex] 100 mg PO DAILY 06/29/18 [History] Past Medical History HEENT History: Reports: None Cardiovascular History: Reports: Other (See Below) Other Cardiovascular History: hx of palpatations Respiratory History: Reports: None Gastrointestinal History: Reports: None Genitourinary History: Reports: UTI, Recurrent HEAD MACHINIST History: Reports: , Other (See Below) Other HEAD MACHINIST History: vaginal cyst excision. elective AB Musculoskeletal History: Reports: Neck Pain, Chronic Neurological History: Reports: Other (See Below) Other Neuro History: headaches caused from neck pain Psychiatric History: Reports: None Endocrine/Metabolic History: Reports: None Hematologic History: Reports: None Immunologic History: Reports: None Oncologic (Cancer) History: Reports: None Dermatologic History: Reports: None - Infectious Disease History Infectious Disease History: Reports: None - Past Surgical History Head Surgeries/Procedures: Reports: None HEENT Surgical History: Reports: Cataract Surgery, Eye Surgery Other HEENT Surgeries/Procedures: 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, cataract surgery approx 4 yrs ago Cardiovascular Surgical History: Reports: None GI Surgical History: Reports: None Female Surgical History: Reports: Other (See Below) Other Female Surgeries/Procedures: cyst removed from vaginal area Endocrine Surgical History: Reports: None Neurological Surgical History: Reports: None Musculoskeletal Surgical History: Reports: None Oncologic Surgical History: Reports: None Social & Family History - Family History Family Medical History: Noncontributory Cardiac: Reports: CAD, Hypertension, Other (See Below) Other Cardiac Family History: heart problems (patient dont know specificts of it ) Respiratory: Reports: None GI: Reports: None : Reports: None OBGYN: Reports: None Musculoskeletal: Reports: None Endocrine/Metabolic: Reports: Diabetes, type II - Caffeine Use Caffeine Use: Reports: Coffee, Energy Drinks, Soda, Tea ED ROS GENERAL - Review of Systems Review Of Systems: ROS reveals no pertinent complaints other than HPI. ED EXAM, BEHAVIORAL HEALTH - Physical Exam Exam: See Below (See dictation) COURSE, BEHAVIORAL HEALTH COMP - Course Vital Signs: Last Vital Signs Temp 97.5 F 06/29/18 11:43 Pulse 99 06/29/18 11:43 Resp 14 06/29/18 11:43 BP 127/85 06/29/18 11:43 Pulse Ox 92 L 06/29/18 11:43 Orders, Labs, Meds: Active Orders 24 hr Category Date Time Status EKG 12 Lead [EKG Documentation Completion] [RC] STAT Care 06/29/18 12:23 Active EKG Documentation Completion [RC] STAT Care 06/29/18 11:39 Active Remove Urinary Catheter [Urinary Catheter Removal] [RC] Care 06/29/18 13:07 Active STAT Urinary Catheter Assessment [RC] ASDIRECTED Care 06/29/18 13:07 Active Urinary Catheter Insertion [Insert Urinary Catheter] [ Care 06/29/18 11:24 Ordered OM.PC] ONETIME Laboratory Tests 06/29/18 06/29/18 06/29/18 Range/Units 11:55 11:55 11:55 WBC (4.0-11.0) K/uL RBC (4.30-5.90) M/uL Hgb (12.0-16.0) g/dL Hct (36.0-46.0) % MCV (80.0-98.0) fL MCH (27.0-32.0) pg MCHC (31.0-37.0) g/dL RDW Std Deviation (28.0-62.0) fl RDW Coeff of Mindy (11.0-15.0) % Plt Count (150-400) K/uL MPV (7.40-12.00) fL Neut % (Auto) (48.0-80.0) % Lymph % (Auto) (16.0-40.0) % Gregory % (Auto) (0.0-15.0) % Eos % (Auto) (0.0-7.0) % Baso % (Auto) (0.0-1.5) % Neut # (Auto) (1.4-5.7) K/uL Lymph # (Auto) (0.6-2.4) K/uL Gregory # (Auto) (0.0-0.8) K/uL Eos # (Auto) (0.0-0.7) K/uL Baso # (Auto) (0.0-0.1) K/uL Nucleated RBC % /100WBC Nucleated RBCs # K/uL Sodium (136-145) mmol/L Potassium (3.5-5.1) mmol/L Chloride (98-107) mmol/L Carbon Dioxide (21.0-32.0) mmol/L BUN (7.0-18.0) mg/dL Creatinine (0.6-1.0) mg/dL Est Cr Clr Drug Dosing Estimated GFR (MDRD) ml/min Glucose (74-106) mg/dL Calcium (8.5-10.1) mg/dL Total Bilirubin (0.2-1.0) mg/dL AST (15-37) IU/L ALT (14-63) IU/L Alkaline Phosphatase (46-116) U/L Total Protein (6.4-8.2) g/dL Albumin (3.4-5.0) g/dL Globulin (2.6-4.0) g/dL Albumin/Globulin Ratio (0.9-1.6) TSH 3rd Generation (0.36-3.74) uIU/mL Urine Color YELLOW Urine Appearance SLT CLOUDY Urine pH 6.5 (5.0-8.0) Ur Specific [place] 1.010 (1.001-1.035) Urine Protein NEGATIVE (NEGATIVE) mg/dL Urine Glucose (UA) NEGATIVE (NEGATIVE) mg/dL Urine Ketones NEGATIVE (NEGATIVE) mg/dL Urine Occult Blood NEGATIVE (NEGATIVE) Urine Nitrite NEGATIVE (NEGATIVE) Urine Bilirubin NEGATIVE (NEGATIVE) Urine Urobilinogen 0.2 (<2.0) EU/dL Ur Leukocyte Esterase NEGATIVE (NEGATIVE) Urine RBC 0-2 (0-2/HPF) Urine WBC 0-2 (0-5/HPF) Ur Epithelial Cells MODERATE (NONE-FEW) Urine Bacteria FEW (NEGATIVE) Urine Mucus LIGHT (NONE-MOD) Urinalysis Comment Urine HCG, Qual NEGATIVE (NEGATIVE) Salicylates (0-20) mg/dL Urine Opiates Screen NEGATIVE (NEGATIVE) Ur Oxycodone Screen NEGATIVE (NEGATIVE) Urine Methadone Screen NEGATIVE (NEGATIVE) Acetaminophen ug/mL Ur Barbiturates Screen NEGATIVE (NEGATIVE) Ur Phencyclidine Scrn NEGATIVE (NEGATIVE) Ur Amphetamine Screen NEGATIVE (NEGATIVE) U Methamphetamines Scrn POSITIVE (NEGATIVE) U Benzodiazepines Scrn NEGATIVE (NEGATIVE) U Cocaine Metab Screen NEGATIVE (NEGATIVE) U Marijuana (THC) Screen NEGATIVE (NEGATIVE) Ethyl Alcohol mg/dL 06/29/18 06/29/18 Range/Units 12:03 12:03 WBC 4.54 (4.0-11.0) K/uL RBC 4.37 (4.30-5.90) M/uL Hgb 12.9 (12.0-16.0) g/dL Hct 39.2 (36.0-46.0) % MCV 89.7 (80.0-98.0) fL MCH 29.5 (27.0-32.0) pg MCHC 32.9 (31.0-37.0) g/dL RDW Std Deviation 44.2 (28.0-62.0) fl RDW Coeff of Mindy 13 (11.0-15.0) % Plt Count 225 (150-400) K/uL MPV 8.30 (7.40-12.00) fL Neut % (Auto) 49.8 (48.0-80.0) % Lymph % (Auto) 33.5 (16.0-40.0) % Gregory % (Auto) 11.9 (0.0-15.0) % Eos % (Auto) 4.6 (0.0-7.0) % Baso % (Auto) 0.2 (0.0-1.5) % Neut # (Auto) 2.3 (1.4-5.7) K/uL Lymph # (Auto) 1.5 (0.6-2.4) K/uL Gregory # (Auto) 0.5 (0.0-0.8) K/uL Eos # (Auto) 0.2 (0.0-0.7) K/uL Baso # (Auto) 0.0 (0.0-0.1) K/uL Nucleated RBC % 0.0 /100WBC Nucleated RBCs # 0 K/uL Sodium 139 (136-145) mmol/L Potassium 3.5 (3.5-5.1) mmol/L Chloride 106 (98-107) mmol/L Carbon Dioxide 26.1 (21.0-32.0) mmol/L BUN 11 (7.0-18.0) mg/dL Creatinine 0.6 (0.6-1.0) mg/dL Est Cr Clr Drug Dosing TNP Estimated GFR (MDRD) > 60.0 ml/min Glucose 99 (74-106) mg/dL Calcium 9.3 (8.5-10.1) mg/dL Total Bilirubin 0.4 (0.2-1.0) mg/dL AST 31 (15-37) IU/L ALT 48 (14-63) IU/L Alkaline Phosphatase 133 H (46-116) U/L Total Protein 6.9 (6.4-8.2) g/dL Albumin 3.5 (3.4-5.0) g/dL Globulin 3.4 (2.6-4.0) g/dL Albumin/Globulin Ratio 1.0 (0.9-1.6) TSH 3rd Generation 0.01 L (0.36-3.74) uIU/mL Urine Color Urine Appearance Urine pH (5.0-8.0) Ur Specific [place] (1.001-1.035) Urine Protein (NEGATIVE) mg/dL Urine Glucose (UA) (NEGATIVE) mg/dL Urine Ketones (NEGATIVE) mg/dL Urine Occult Blood (NEGATIVE) Urine Nitrite (NEGATIVE) Urine Bilirubin (NEGATIVE) Urine Urobilinogen (<2.0) EU/dL Ur Leukocyte Esterase (NEGATIVE) Urine RBC (0-2/HPF) Urine WBC (0-5/HPF) Ur Epithelial Cells (NONE-FEW) Urine Bacteria (NEGATIVE) Urine Mucus (NONE-MOD) Urinalysis Comment Urine HCG, Qual (NEGATIVE) Salicylates 1.1 (0-20) mg/dL Urine Opiates Screen (NEGATIVE) Ur Oxycodone Screen (NEGATIVE) Urine Methadone Screen (NEGATIVE) Acetaminophen 0.0 ug/mL Ur Barbiturates Screen (NEGATIVE) Ur Phencyclidine Scrn (NEGATIVE) Ur Amphetamine Screen (NEGATIVE) U Methamphetamines Scrn (NEGATIVE) U Benzodiazepines Scrn (NEGATIVE) U Cocaine Metab Screen (NEGATIVE) U Marijuana (THC) Screen (NEGATIVE) Ethyl Alcohol <3 mg/dL Medications Discontinued Medications Generic Name Dose Route Start Last Admin Trade Name Freq PRN Reason Stop Dose Admin Sodium Chloride 1,000 mls @ 999 mls/hr 06/29/18 11:39 06/29/18 12:08 Normal Saline IV 06/29/18 12:39 999 mls/hr STAT ONE Administration Ondansetron HCl 4 mg 06/29/18 11:39 06/29/18 12:21 Zofran IVPUSH 06/29/18 11:40 Not Given ONETIME ONE Ondansetron HCl Confirm 06/29/18 12:10 06/29/18 12:20 Zofran Administered 06/29/18 12:11 Not Given Dose 4 mg .ROUTE .STK-MED ONE Ondansetron HCl 4 mg 06/29/18 12:19 06/29/18 12:20 Zofran IVPUSH 06/29/18 12:20 4 mg ONETIME ONE Administration Departure - Departure Time of Disposition: 13:36 Disposition: DC/Tfer to Acute Hospital 02 Clinical Impression: Substance abuse, Hyperthyroidism Drug overdose, intentional Qualifiers: Encounter type: initial encounter Qualified Code(s): T50.902A - Poisoning by unspecified drugs, medicaments and biological substances, intentional self-harm , initial encounter - Discharge Information - My Orders Last 24 Hours: My Active Orders 06/29/18 11:24 Urinary Catheter Insertion [Insert Urinary Catheter] [OM.PC] ONETIME 06/29/18 11:39 EKG Documentation Completion [RC] STAT 06/29/18 12:23 EKG 12 Lead [EKG Documentation Completion] [RC] STAT 06/29/18 13:07 Remove Urinary Catheter [Urinary Catheter Removal] [RC] STAT Urinary Catheter Assessment [RC] ASDIRECTED - Assessment/Plan Last 24 Hours: My Active Orders 06/29/18 11:24 Urinary Catheter Insertion [Insert Urinary Catheter] [OM.PC] ONETIME 06/29/18 11:39 EKG Documentation Completion [RC] STAT 06/29/18 12:23 EKG 12 Lead [EKG Documentation Completion] [RC] STAT 06/29/18 13:07 Remove Urinary Catheter [Urinary Catheter Removal] [RC] STAT Urinary Catheter Assessment [RC] ASDIRECTED
[2018-06-29] MEDS ORDERED: Ondansetron 4 MG/2 ML SDV ONE (12:10)
[2018-06-29 12:57] LABS: CHLORIDE,CL 106 mmol/L (98-107); SODIUM,NA 139 mmol/L (136-145)
[2018-06-29 17:05] VITALS: BP 115/76
== END 2018-06-29 14:15 ==
LOC: MW.ED 11:36
DX: T43.222A Poisoning by selective serotonin reuptake inhibitors, intentional self-harm, initial encounter (principal); E05.90 Thyrotoxicosis, unspecified without thyrotoxic crisis or storm; Z79.899 Other long term (current) drug therapy
CPT/HCPCS: 36415; 80053; 80305; 81001; 81025; 84443; 85025; 93005; 96361; 96374; 99285; G0480; J2405; J7040

== ENCOUNTER 2018-09-11 20:15 | Observation (INO) | payer BC ==
[2018-09-11] MEDS ORDERED: Sodium Chloride 0.9% 1,000 ML IV ONE (20:24)
[2018-09-11] MEDS ORDERED: Ondansetron 4 MG/2 ML SDV IVPUSH ONE (20:24)
[2018-09-11] MEDS ORDERED: Ketorolac 30 MG/ML SDV IVPUSH ONE (20:24)
--- NOTE | 2018-09-11 20:31 | EDM.PDOC ---
ED HPI GENERAL MEDICAL PROBLEM - General Chief Complaint: Abdominal Pain Stated Complaint: STOMACH PAIN Time Seen by Provider: 09/11/18 20:24 Source of Information: Reports: Patient History Limitations: Reports: No Limitations - History of Present Illness INITIAL COMMENTS - FREE TEXT/NARRATIVE: HISTORY AND PHYSICAL: History of present illness: Patient is a 37-year-old female who presents to the emergency room with complaints of mid abdominal/epigastric pain which started approximately 3 hours prior to arrival. Patient denies any fever, chills, headache, change in vision, syncope or near syncope. Denies any chest pain, back pain, shortness of breath or cough. Denies any nausea, vomiting, diarrhea, constipation or dysuria. Has not noted any blood in urine or stool. Patient has been eating and drinking appropriately. Review of systems: As per history of present illness and below otherwise all systems reviewed and negative. Past medical history: As per history of present illness and as reviewed below otherwise noncontributory. Surgical history: As per history of present illness and as reviewed below otherwise noncontributory. Social history: See social history for further information Family history: As per history of present illness and as reviewed below otherwise noncontributory. Physical exam: General: Well-developed and well-nourished 37-year-old female. Alert and oriented. Nontoxic appearing and in no acute distress. HEENT: Atraumatic, normocephalic, pupils equal and reactive bilaterally, negative for conjunctival pallor or scleral icterus, mucous membranes moist, TMs normal bilaterally, throat clear, neck supple, nontender, trachea midline. No drooling or trismus noted. No meningeal signs. No hot potato voice noted. Lungs: Clear to auscultation, breath sounds equal bilaterally, chest nontender. Heart: S1S2, regular rate and rhythm without overt murmur Abdomen: Soft, nondistended, diffuse generalized tenderness throughout. Negative for masses or hepatosplenomegaly. Negative for costovertebral tenderness. Pelvis: Stable nontender. Genitourinary: Deferred. Rectal: Deferred. Skin: Intact, warm, dry. No lesions or rashes noted. Extremities: Atraumatic, moves all extremities per self without difficulty or deficits, negative for cords or calf pain. Neurovascular unremarkable. Neuro: Awake, alert, oriented. Cranial nerves II through XII unremarkable. Cerebellum unremarkable. Motor and sensory unremarkable throughout. Exam nonfocal. Notes: CT imaging results are pending. Dr Kimbrough was briefed on this patient and will follow diagnostics and disposition patient appropriately. Diagnostics: CBC, CMP, UA, HCGU, Lipase, H.Pylori, CT abd/pelvis Therapeutics: IV fluids, Zofran, Toradol Impression: Abdominal Pain Definitive disposition and diagnosis as appropriate pending reevaluation and review of above. abdominal Pain Score (Numeric/FACES): 10 - Related Data Allergies Allergy/AdvReac Type Severity Reaction Status Date / Time No Known Allergies Allergy Verified 09/11/18 20:26 Home Meds: Home Meds SUMAtriptan [Imitrex] 100 mg PO DAILY 06/29/18 [History] Ibuprofen 800 mg PO DAILY PRN 09/11/18 [History] Acetaminophen/HYDROcodone [[place] 325-5 MG] 1 tab PO Q6H PRN 5 Days #15 tablet [Rx] Past Medical History HEENT History: Reports: None Cardiovascular History: Reports: Other (See Below) Other Cardiovascular History: hx of palpatations Respiratory History: Reports: None Gastrointestinal History: Reports: None Genitourinary History: Reports: UTI, Recurrent REGISTERED RESPIRATORY THERAPIST History: Reports: , Other (See Below) Other REGISTERED RESPIRATORY THERAPIST History: vaginal cyst excision. elective AB Musculoskeletal History: Reports: Neck Pain, Chronic Neurological History: Reports: Other (See Below) Other Neuro History: headaches caused from neck pain Psychiatric History: Reports: None Endocrine/Metabolic History: Reports: None Hematologic History: Reports: None Immunologic History: Reports: None Oncologic (Cancer) History: Reports: None Dermatologic History: Reports: None - Infectious Disease History Infectious Disease History: Reports: None - Past Surgical History Head Surgeries/Procedures: Reports: None HEENT Surgical History: Reports: Cataract Surgery, Eye Surgery Other HEENT Surgeries/Procedures: 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, cataract surgery approx 4 yrs ago Cardiovascular Surgical History: Reports: None GI Surgical History: Reports: None Female Surgical History: Reports: Other (See Below) Other Female Surgeries/Procedures: cyst removed from vaginal area Endocrine Surgical History: Reports: None Neurological Surgical History: Reports: None Musculoskeletal Surgical History: Reports: None Oncologic Surgical History: Reports: None Social & Family History - Family History Family Medical History: Noncontributory Cardiac: Reports: CAD, Hypertension, Other (See Below) Other Cardiac Family History: heart problems (patient dont know specificts of it ) Respiratory: Reports: None GI: Reports: None : Reports: None OBGYN: Reports: None Musculoskeletal: Reports: None Endocrine/Metabolic: Reports: Diabetes, type II - Caffeine Use Caffeine Use: Reports: Coffee, Energy Drinks, Soda, Tea ED ROS GENERAL - Review of Systems Review Of Systems: ROS reveals no pertinent complaints other than HPI. ED EXAM, GI/ABD - Physical Exam Exam: See Below (See dictation) Course - Vital Signs Last Recorded V/S: Last Vital Signs Temp 97.8 F 09/13/18 07:53 Pulse 68 09/13/18 07:53 Resp 17 09/13/18 07:59 BP 115/70 09/13/18 07:53 Pulse Ox 99 09/13/18 07:53 - Orders/Labs/Meds Labs: Laboratory Tests 09/11/18 09/11/18 09/11/18 Range/Units 20:35 20:35 20:45 WBC 11.90 H (4.0-11.0) K/uL RBC 4.53 (4.30-5.90) M/uL Hgb 13.7 (12.0-16.0) g/dL Hct 41.6 (36.0-46.0) % MCV 91.8 (80.0-98.0) fL MCH 30.2 (27.0-32.0) pg MCHC 32.9 (31.0-37.0) g/dL RDW Std Deviation 45.7 (28.0-62.0) fl RDW Coeff of Mindy 14 (11.0-15.0) % Plt Count 261 (150-400) K/uL MPV 8.90 (7.40-12.00) fL Neut % (Auto) 75.0 (48.0-80.0) % Lymph % (Auto) 16.9 (16.0-40.0) % Trigg % (Auto) 5.4 (0.0-15.0) % Eos % (Auto) 2.5 (0.0-7.0) % Baso % (Auto) 0.2 (0.0-1.5) % Neut # (Auto) 8.9 H (1.4-5.7) K/uL Lymph # (Auto) 2.0 (0.6-2.4) K/uL Trigg # (Auto) 0.6 (0.0-0.8) K/uL Eos # (Auto) 0.3 (0.0-0.7) K/uL Baso # (Auto) 0.0 (0.0-0.1) K/uL Nucleated RBC % 0.0 /100WBC Nucleated RBCs # 0 K/uL Sodium (136-145) mmol/L Potassium (3.5-5.1) mmol/L Chloride (98-107) mmol/L Carbon Dioxide (21.0-32.0) mmol/L BUN (7.0-18.0) mg/dL Creatinine (0.6-1.0) mg/dL Est Cr Clr Drug Dosing mL/min Estimated GFR (MDRD) ml/min Glucose (74-106) mg/dL Calcium (8.5-10.1) mg/dL Total Bilirubin (0.2-1.0) mg/dL AST (15-37) IU/L ALT (14-63) IU/L Alkaline Phosphatase (46-116) U/L Total Protein (6.4-8.2) g/dL Albumin (3.4-5.0) g/dL Globulin (2.6-4.0) g/dL Albumin/Globulin Ratio (0.9-1.6) Urine Color YELLOW Urine Appearance CLEAR Urine pH 7.0 (5.0-8.0) Ur Specific [place] 1.010 (1.001-1.035) Urine Protein NEGATIVE (NEGATIVE) mg/dL Urine Glucose (UA) NEGATIVE (NEGATIVE) mg/dL Urine Ketones NEGATIVE (NEGATIVE) mg/dL Urine Occult Blood NEGATIVE (NEGATIVE) Urine Nitrite NEGATIVE (NEGATIVE) Urine Bilirubin NEGATIVE (NEGATIVE) Urine Urobilinogen 0.2 (<2.0) EU/dL Ur Leukocyte Esterase NEGATIVE (NEGATIVE) Urine HCG, Qual NEGATIVE (NEGATIVE) H. pylori IgG Antibody (NEG) 09/11/18 09/11/18 Range/Units 20:45 20:45 WBC (4.0-11.0) K/uL RBC (4.30-5.90) M/uL Hgb (12.0-16.0) g/dL Hct (36.0-46.0) % MCV (80.0-98.0) fL MCH (27.0-32.0) pg MCHC (31.0-37.0) g/dL RDW Std Deviation (28.0-62.0) fl RDW Coeff of Mindy (11.0-15.0) % Plt Count (150-400) K/uL MPV (7.40-12.00) fL Neut % (Auto) (48.0-80.0) % Lymph % (Auto) (16.0-40.0) % Trigg % (Auto) (0.0-15.0) % Eos % (Auto) (0.0-7.0) % Baso % (Auto) (0.0-1.5) % Neut # (Auto) (1.4-5.7) K/uL Lymph # (Auto) (0.6-2.4) K/uL Trigg # (Auto) (0.0-0.8) K/uL Eos # (Auto) (0.0-0.7) K/uL Baso # (Auto) (0.0-0.1) K/uL Nucleated RBC % /100WBC Nucleated RBCs # K/uL Sodium 140 (136-145) mmol/L Potassium 3.2 L (3.5-5.1) mmol/L Chloride 105 (98-107) mmol/L Carbon Dioxide 23.3 (21.0-32.0) mmol/L BUN 14 (7.0-18.0) mg/dL Creatinine 0.8 (0.6-1.0) mg/dL Est Cr Clr Drug Dosing 90.13 mL/min Estimated GFR (MDRD) > 60.0 ml/min Glucose 106 (74-106) mg/dL Calcium 9.1 (8.5-10.1) mg/dL Total Bilirubin 0.3 (0.2-1.0) mg/dL AST 22 (15-37) IU/L ALT 34 (14-63) IU/L Alkaline Phosphatase 133 H (46-116) U/L Total Protein 7.2 (6.4-8.2) g/dL Albumin 3.7 (3.4-5.0) g/dL Globulin 3.5 (2.6-4.0) g/dL Albumin/Globulin Ratio 1.1 (0.9-1.6) Urine Color Urine Appearance Urine pH (5.0-8.0) Ur Specific [place] (1.001-1.035) Urine Protein (NEGATIVE) mg/dL Urine Glucose (UA) (NEGATIVE) mg/dL Urine Ketones (NEGATIVE) mg/dL Urine Occult Blood (NEGATIVE) Urine Nitrite (NEGATIVE) Urine Bilirubin (NEGATIVE) Urine Urobilinogen (<2.0) EU/dL Ur Leukocyte Esterase (NEGATIVE) Urine HCG, Qual (NEGATIVE) H. pylori IgG Antibody NEGATIVE (NEG) Meds: Medications Discontinued Medications Generic Name Dose Route Start Last Admin Trade Name Freq PRN Reason Stop Dose Admin Acetaminophen 325 mg 09/12/18 11:05 Tylenol PO Q4H PRN Fever Greater Than 101 Hydrocodone Bitart/Acetaminophen 1 tab 09/12/18 11:05 09/13/18 08:52 [place] 325-5 Mg PO 1 tab Q6H PRN Administration Pain (moderate 4-6) Bupivacaine HCl Confirm 09/12/18 09:33 Sensorcaine-Mpf 0.5% Administered 09/12/18 09:34 Dose 10 ml .ROUTE .STK-MED ONE Cefazolin Sodium Confirm 09/12/18 10:11 Ancef Administered 09/12/18 10:12 Dose 1 gm .ROUTE .STK-MED ONE Dexamethasone Confirm 09/12/18 10:29 Dexamethasone Administered 09/12/18 10:30 Dose 20 mg .ROUTE .STK-MED ONE Fentanyl Confirm 09/12/18 09:37 Sublimaze Administered 09/12/18 09:38 Dose 100 mcg .ROUTE .STK-MED ONE Fentanyl Confirm 09/12/18 10:32 Sublimaze Administered 09/12/18 10:33 Dose 100 mcg .ROUTE .STK-MED ONE Fentanyl Confirm 09/12/18 11:27 09/12/18 17:51 Sublimaze Administered 09/12/18 11:28 Not Given Dose 100 mcg .ROUTE .STK-MED ONE Glycopyrrolate Confirm 09/12/18 10:26 Robinul Administered 09/12/18 10:27 Dose 0.4 mg .ROUTE .STK-MED ONE Hydromorphone HCl 1 - 2 mg 09/12/18 11:22 Dilaudid IVPUSH .ONETIME PRN Pain Sodium Chloride 1,000 mls @ 999 mls/hr 09/11/18 20:24 09/11/18 20:44 Normal Saline IV 09/11/18 21:24 999 mls/hr STAT ONE Administration Cefoxitin Sodium 2 gm/ Sodium 100 mls @ 200 mls/hr 09/11/18 23:45 09/12/18 00 :14 Chloride IV 09/12/18 00:14 200 mls/hr ONETIME ONE Administration Cefoxitin Sodium 1 gm/ Sodium 50 mls @ 100 mls/hr 09/12/18 05:45 09/12/18 05: 51 Chloride IV 100 mls/hr Q6H ERIKA Administration Lactated Ringer's 1,000 mls @ 125 mls/hr 09/11/18 23:30 09/12/18 00:13 Ringers, Lactated IV 125 mls/hr ASDIRECTED ERIKA Administration Cefoxitin Sodium 1 gm/ Premix 50 mls @ 100 mls/hr 09/12/18 12:00 09/13/18 04: 59 IV 100 mls/hr Q6H ERIKA Administration Lactated Ringer's 1,000 mls @ 125 mls/hr 09/12/18 11:15 09/13/18 01:38 Ringers, Lactated IV 125 mls/hr ASDIRECTED ERIKA Administration Cefoxitin Sodium 1 gm/ Premix 50 mls @ 100 mls/hr 09/12/18 11:15 09/13/18 00: 45 IV 09/12/18 19:44 Not Given Q8H ERIKA Iopamidol 100 ml 09/11/18 22:06 09/11/18 22:07 Isovue Multipack-370 (76%) IVPUSH 09/11/18 22:07 100 ml ONETIME STA Administration Ketorolac Tromethamine 30 mg 09/11/18 20:24 09/11/18 20:44 Toradol IVPUSH 09/11/18 20:25 30 mg ONETIME ONE Administration Lidocaine HCl Confirm 09/12/18 09:38 Xylocaine 2% Administered 09/12/18 09:39 Dose 100 mg .ROUTE .STK-MED ONE Midazolam HCl Confirm 09/12/18 09:35 Versed 1 Mg/Ml Administered 09/12/18 09:36 Dose 2 mg .ROUTE .STK-MED ONE Morphine Sulfate 0 mg 09/11/18 23:29 09/12/18 08:03 Morphine IVPUSH 5 mg Q1H PRN Administration Pain (severe 7-10) Morphine Sulfate 2 mg 09/11/18 23:54 09/12/18 00:00 Morphine IVPUSH 09/11/18 23:55 2 mg ONETIME ONE Administration Morphine Sulfate 0 mg 09/12/18 11:05 09/13/18 04:55 Morphine IVPUSH 3 mg Q1H PRN Administration Pain (severe 7-10) Ondansetron HCl 4 mg 09/11/18 20:24 09/11/18 20:44 Zofran IVPUSH 09/11/18 20:25 4 mg ONETIME ONE Administration Ondansetron HCl 4 mg 09/11/18 23:29 Zofran IVPUSH Q6H PRN Nausea/Vomiting Ondansetron HCl Confirm 09/12/18 10:29 Zofran Administered 09/12/18 10:30 Dose 8 mg .ROUTE .STK-MED ONE Ondansetron HCl Confirm 09/12/18 10:54 Zofran Administered 09/12/18 10:55 Dose 8 mg .ROUTE .STK-MED ONE Ondansetron HCl 4 mg 09/12/18 11:05 Zofran IVPUSH Q6H PRN Nausea/Vomiting Propofol Confirm 09/12/18 09:40 Diprivan 20 Ml Administered 09/12/18 09:41 Dose 200 mg .ROUTE .STK-MED ONE Rocuronium [place] Confirm 09/12/18 09:40 Zemuron Administered 09/12/18 09:41 Dose 100 mg .ROUTE .STK-MED ONE Sugammadex Sodium Confirm 09/12/18 10:54 Bridion Administered 09/12/18 10:55 Dose 200 mg .ROUTE .STK-MED ONE Departure - Departure Time of Disposition: 23:30 Disposition: Admitted As Inpatient 66 Clinical Impression: Appendicitis Qualifiers: Appendicitis type: acute appendicitis Acute appendicitis type: with localized peritonitis Appendicitis perforation presence: unspecified whether perforation present Appendicitis abscess presence: without abscess - Discharge Information
[2018-09-11 21:29] LABS: CHLORIDE,CL 105 mmol/L (98-107); SODIUM,NA 140 mmol/L (136-145)
[2018-09-11] MEDS ORDERED: Iopamidol 755 MG/ML 500 ML Multipack Bottle IVPUSH STA (22:06)
--- NOTE | 2018-09-11 22:52 | CT ---
HISTORY: Abdominal pain. TECHNIQUE: Intravenous contrast enhanced CT of the abdomen and pelvis. 100 mL of Isovue-370 intravenous contrast administered. COMPARISON: No prior. FINDINGS: Focal fatty infiltration within the medial segment of the left hepatic lobe adjacent to the falciform ligament. No biliary ductal dilatation. Gallbladder is nondistended. Spleen and adrenal glands are normal. No focal pancreatic abnormality or acute peripancreatic inflammatory change. Symmetric nephrograms. No renal mass or hydronephrosis. No obstructive urinary calculus. Urinary bladder is nondistended. - There is no small bowel obstruction. There is colonic wall thickening involving the cecal apex. The portion of the appendix and mid aspect of the appendix are dilated to approximately 9 mm. There is slight haziness of the adjacent fat. Given the appendiceal dilatation, the findings may reflect primary appendicitis with secondary cecal wall thickening. Secondary obstruction of the appendiceal orifice by primary cecal wall thickening is also a consideration. Mildly prominent right lower quadrant lymph node posteriorly on image #92 measures 10 mm. There is no diverticulitis. Trace pelvic free fluid posteriorly. No localized collection. Probable 2.5 cm cyst or dominant follicle within the right ovary. IUD within the uterus which appears appropriately positioned. No abdominal aortic aneurysm. 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 No acute fractures. - Mild subpleural atelectasis within the lung bases. IMPRESSION: 1. Appendix is dilated measuring 9 mm with mild adjacent inflammatory change. There is also cecal apical wall thickening. Considerations include primary appendicitis with secondary reactive cecal wall thickening versus primary cecal wall thickening with secondary appendiceal dilatation. 2. Trace pelvic free fluid. No localized collection. 3. 2.5 cm cyst or dominant follicle right ovary. 4. IUD position appears grossly appropriate. 5. Preliminary report by Dr. Tobias on 09/11/2018 at 10:50 p.m. Please note that all CT scans at this facility use dose modulation, iterative reconstruction, and/or weight-based dosing when appropriate to reduce radiation dose to as low as reasonably achievable. Dictated by Aston Plasencia MD @ Sep 13 2018 9:44AM Signed by Dr. Aston Plasencia @ Sep 13 2018 9:51AM
[2018-09-11] MEDS ORDERED: Ondansetron 4 MG/2 ML SDV IVPUSH PRN (23:29)
[2018-09-11] MEDS ORDERED: Lactated Ringers 1,000 ML IV SCH (23:30)
--- NOTE | 2018-09-11 23:36 | PCM.CONS ---
H&P History of Present Illness - General Date of Service: 09/11/18 Admit Problem/Dx: Admission Diagnosis/Problem Admission Diagnosis/Problem Appendicitis Source of Information: Patient, Family History Limitations: Reports: No Limitations - History of Present Illness Initial Comments - Free Text/Narative: Patient is a 37-year-old female who presents to the emergency room today with a less than 24-hour history of abdominal pain. Described the pain as diffuse in nature. It really did not localize to the right lower quadrant. Has had some mild nausea and vomiting. Not really eating much. No diarrhea. No change in bowel habits. Does note pain with ambulation and pain with any jarring. No fever. She says she frequently has the chills. Onset of Symptoms: Reports: Today Location: Reports: Abdomen Quality: Reports: Ache, Pressure, Throbbing Severity: Moderate Improves with: Reports: Rest Worsens with: Reports: Movement Context: Reports: Sick Contact Associated Symptoms: Reports: Fever/Chills (No fever, just chills), Loss of Appetite, Nausea/Vomiting abdominal Pain Score (Numeric/FACES): 10 - Related Data Allergies/Adverse Reactions: Allergies Allergy/AdvReac Type Severity Reaction Status Date / Time No Known Allergies Allergy Verified 09/11/18 20:26 Home Medications: Home Meds SUMAtriptan [Imitrex] 100 mg PO DAILY 06/29/18 [History] Ibuprofen 800 mg PO DAILY PRN 09/11/18 [History] Past Medical History HEENT History: Reports: None Cardiovascular History: Reports: Other (See Below) Other Cardiovascular History: hx of palpatations Respiratory History: Reports: None Gastrointestinal History: Reports: None Genitourinary History: Reports: UTI, Recurrent 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 elective AB Musculoskeletal History: Reports: Neck Pain, Chronic Neurological History: Reports: Other (See Below) Other Neuro History: headaches caused from neck pain Psychiatric History: Reports: None Endocrine/Metabolic History: Reports: None Hematologic History: Reports: None Immunologic History: Reports: None Oncologic (Cancer) History: Reports: None Dermatologic History: Reports: None - Infectious Disease History Infectious Disease History: Reports: None - Past Surgical History Head Surgeries/Procedures: Reports: None HEENT Surgical History: Reports: Cataract Surgery, Eye Surgery Other HEENT Surgeries/Procedures: 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, cataract surgery approx 4 yrs ago Cardiovascular Surgical History: Reports: None GI Surgical History: Reports: None Female Surgical History: Reports: D&C, Other (See Below) Other Female Surgeries/Procedures: cyst removed from vaginal area Endocrine Surgical History: Reports: None Neurological Surgical History: Reports: None Musculoskeletal Surgical History: Reports: None Oncologic Surgical History: Reports: None Social & Family History - Family History Family Medical History: Noncontributory Cardiac: Reports: CAD, Hypertension, Other (See Below) Other Cardiac Family History: heart problems (patient dont know specificts of it ) Respiratory: Reports: None GI: Reports: None : Reports: None OBGYN: Reports: None Musculoskeletal: Reports: None Endocrine/Metabolic: Reports: Diabetes, type II - Tobacco Use Smoking Status *Q: Current Every Day Smoker Years of Tobacco use: 10 Packs/Tins Daily: 0.1 - Caffeine Use Caffeine Use: Reports: Coffee, Energy Drinks, Soda, Tea - Recreational Drug Use Recreational Drug Use: No H&P Review of Systems - Review of Systems: Review Of Systems: See Below General: Reports: Chills, Malaise, Decreased Appetite. Denies: Fever, Weakness , Fatigue, Night Sweats HEENT: Reports: No Symptoms Pulmonary: Denies: Shortness of Breath, Wheezing Cardiovascular: Reports: Palpitations. Denies: Chest Pain Gastrointestinal: Reports: Abdominal Pain, Anorexia, Decreased Appetite, Flatus , Nausea, Vomiting. Denies: Constipation, Diarrhea, Distension, Hematemesis, Hematochezia, Melena Genitourinary: Denies: Dysuria, Frequency, Burning, Pain Musculoskeletal: Reports: No Symptoms Skin: Reports: No Symptoms Psychiatric: Denies: Confusion, Depression Neurological: Reports: No Symptoms Hematologic/Lymphatic: Reports: No Symptoms Immunologic: Reports: No Symptoms Exam - Exam Exam: See Below - Vital Signs Vital Signs: Last Vital Signs Temp 98.5 F 09/11/18 20:24 Pulse 69 09/11/18 22:16 Resp 18 09/11/18 22:16 BP 107/70 09/11/18 22:16 Pulse Ox 96 09/11/18 22:16 Weight: 140 lb - Exam General: Alert, Oriented, Cooperative, Mild Distress HEENT: Conjunctiva Clear, Pupils Equal, Pupils Reactive. No: Scleral Icterus Neck: Supple, Trachea Midline Lungs: Clear to Auscultation, Normal Respiratory Effort Cardiovascular: Regular Rate, Regular Rhythm. No: Systolic Murmur, Diastolic Murmur GI/Abdominal Exam: Normal Bowel Sounds, Soft, No Distention, No Mass, Rebound, Tender. No: Guarding, Rigid (Female) Exam: Deferred Rectal (Female) Exam: Deferred Back Exam: Normal Inspection Extremities: Normal Inspection Peripheral Pulses: 4+: Posterior Tibial (L), Posterior Tibial (R), Dorsalis Pedis (L), Dorsalis Pedis (R) Skin: Warm, Dry, Intact Neurological: Cranial Nerves Intact Neuro Extensive - Mental Status: Alert, Oriented x3, Normal Mood/Affect Psychiatric: Alert, Normal Affect, Normal Mood - Patient Data Lab Results Last 24 hrs: Laboratory Results - last 24 hr 09/11/18 09/11/18 09/11/18 Range/Units 20:35 20:35 20:45 WBC 11.90 H (4.0-11.0) K/uL RBC 4.53 (4.30-5.90) M/uL Hgb 13.7 (12.0-16.0) g/dL Hct 41.6 (36.0-46.0) % MCV 91.8 (80.0-98.0) fL MCH 30.2 (27.0-32.0) pg MCHC 32.9 (31.0-37.0) g/dL RDW Std Deviation 45.7 (28.0-62.0) fl RDW Coeff of Mindy 14 (11.0-15.0) % Plt Count 261 (150-400) K/uL MPV 8.90 (7.40-12.00) fL Neut % (Auto) 75.0 (48.0-80.0) % Lymph % (Auto) 16.9 (16.0-40.0) % [place] % (Auto) 5.4 (0.0-15.0) % Eos % (Auto) 2.5 (0.0-7.0) % Baso % (Auto) 0.2 (0.0-1.5) % Neut # (Auto) 8.9 H (1.4-5.7) K/uL Lymph # (Auto) 2.0 (0.6-2.4) K/uL [place] # (Auto) 0.6 (0.0-0.8) K/uL Eos # (Auto) 0.3 (0.0-0.7) K/uL Baso # (Auto) 0.0 (0.0-0.1) K/uL Nucleated RBC % 0.0 /100WBC Nucleated RBCs # 0 K/uL Sodium (136-145) mmol/L Potassium (3.5-5.1) mmol/L Chloride (98-107) mmol/L Carbon Dioxide (21.0-32.0) mmol/L BUN (7.0-18.0) mg/dL Creatinine (0.6-1.0) mg/dL Est Cr Clr Drug Dosing mL/min Estimated GFR (MDRD) ml/min Glucose (74-106) mg/dL Calcium (8.5-10.1) mg/dL Total Bilirubin (0.2-1.0) mg/dL AST (15-37) IU/L ALT (14-63) IU/L Alkaline Phosphatase (46-116) U/L Total Protein (6.4-8.2) g/dL Albumin (3.4-5.0) g/dL Globulin (2.6-4.0) g/dL Albumin/Globulin Ratio (0.9-1.6) Urine Color YELLOW Urine Appearance CLEAR Urine pH 7.0 (5.0-8.0) Ur Specific [place] 1.010 (1.001-1.035) Urine Protein NEGATIVE (NEGATIVE) mg/dL Urine Glucose (UA) NEGATIVE (NEGATIVE) mg/dL Urine Ketones NEGATIVE (NEGATIVE) mg/dL Urine Occult Blood NEGATIVE (NEGATIVE) Urine Nitrite NEGATIVE (NEGATIVE) Urine Bilirubin NEGATIVE (NEGATIVE) Urine Urobilinogen 0.2 (<2.0) EU/dL Ur Leukocyte Esterase NEGATIVE (NEGATIVE) Urine HCG, Qual NEGATIVE (NEGATIVE) H. pylori IgG Antibody (NEG) 09/11/18 09/11/18 Range/Units 20:45 20:45 WBC (4.0-11.0) K/uL RBC (4.30-5.90) M/uL Hgb (12.0-16.0) g/dL Hct (36.0-46.0) % MCV (80.0-98.0) fL MCH (27.0-32.0) pg MCHC (31.0-37.0) g/dL RDW Std Deviation (28.0-62.0) fl RDW Coeff of Mindy (11.0-15.0) % Plt Count (150-400) K/uL MPV (7.40-12.00) fL Neut % (Auto) (48.0-80.0) % Lymph % (Auto) (16.0-40.0) % [place] % (Auto) (0.0-15.0) % Eos % (Auto) (0.0-7.0) % Baso % (Auto) (0.0-1.5) % Neut # (Auto) (1.4-5.7) K/uL Lymph # (Auto) (0.6-2.4) K/uL [place] # (Auto) (0.0-0.8) K/uL Eos # (Auto) (0.0-0.7) K/uL Baso # (Auto) (0.0-0.1) K/uL Nucleated RBC % /100WBC Nucleated RBCs # K/uL Sodium 140 (136-145) mmol/L Potassium 3.2 L (3.5-5.1) mmol/L Chloride 105 (98-107) mmol/L Carbon Dioxide 23.3 (21.0-32.0) mmol/L BUN 14 (7.0-18.0) mg/dL Creatinine 0.8 (0.6-1.0) mg/dL Est Cr Clr Drug Dosing 90.13 mL/min Estimated GFR (MDRD) > 60.0 ml/min Glucose 106 (74-106) mg/dL Calcium 9.1 (8.5-10.1) mg/dL Total Bilirubin 0.3 (0.2-1.0) mg/dL AST 22 (15-37) IU/L ALT 34 (14-63) IU/L Alkaline Phosphatase 133 H (46-116) U/L Total Protein 7.2 (6.4-8.2) g/dL Albumin 3.7 (3.4-5.0) g/dL Globulin 3.5 (2.6-4.0) g/dL Albumin/Globulin Ratio 1.1 (0.9-1.6) Urine Color Urine Appearance Urine pH (5.0-8.0) Ur Specific [place] (1.001-1.035) Urine Protein (NEGATIVE) mg/dL Urine Glucose (UA) (NEGATIVE) mg/dL Urine Ketones (NEGATIVE) mg/dL Urine Occult Blood (NEGATIVE) Urine Nitrite (NEGATIVE) Urine Bilirubin (NEGATIVE) Urine Urobilinogen (<2.0) EU/dL Ur Leukocyte Esterase (NEGATIVE) Urine HCG, Qual (NEGATIVE) H. pylori IgG Antibody NEGATIVE (NEG) Result Diagrams: 09/11/18 20:45 09/11/18 20:45 Consult PN Assessment/Plan Procedures: Procedures ASSAY OF PROGESTERONE (07/01/15) ASSAY THYROID STIM HORMONE (06/29/18) BLOOD TYPING SEROLOGIC ABO (07/04/15) BLOOD TYPING SEROLOGIC RH(D) (07/04/15) ELIZABETH DNA DIR PROBE (04/29/18) CARE OF MISCARRIAGE (04/27/17) CHORIONIC GONADOTROPIN TEST (04/25/17) CHYLMD TRACH DNA AMP PROBE (12/19/15) COMPLETE CBC AUTOMATED (04/29/18) COMPLETE CBC W/AUTO DIFF WBC (06/29/18) COMPREHEN METABOLIC PANEL (06/29/18) CULTURE OTHR SPECIMN AEROBIC (04/11/18) CULTURE SCREEN ONLY (01/18/16) DRUG TEST PRSMV DIR OPT OBS (06/29/18) ELECTROCARDIOGRAM TRACING (06/29/18) EMERGENCY DEPT VISIT (06/29/18) EMERGENCY DEPT VISIT (02/04/18) EMERGENCY DEPT VISIT (05/27/17) EMERGENCY DEPT VISIT (07/04/15) EMERGENCY DEPT VISIT (06/17/15) NON-STRESS TEST (01/25/16) EDWARDS VAG DNA DIR PROBE (04/29/18) GLUCOSE TEST (11/24/15) HYDRATE IV INFUSION ADD-ON (06/29/18) HYDRATION IV INFUSION INIT (05/27/17) MICROBE SUSCEPTIBLE MOIRA (11/06/17) N.GONORRHOEAE DNA AMP PROB (12/19/15) OB US < 14 WKS SINGLE FETUS (07/04/15) OFFICE/OUTPATIENT VISIT EST (12/19/15) ROUTINE VENIPUNCTURE (06/29/18) SMEAR WET [place] SALINE/INK (12/19/15) THER/PROPH/DIAG INJ IV PUSH (06/29/18) TISSUE EXAM BY PATHOLOGIST (04/27/17) TRANSVAGINAL US OBSTETRIC (12/19/15) TRICHOMONAS VAGIN DIR PROBE (04/29/18) TTE W/DOPPLER COMPLETE (08/06/17) TX/PRO/DX INJ NEW DRUG ADDON (02/04/18) URINALYSIS AUTO W/O SCOPE (01/25/16) URINALYSIS AUTO W/SCOPE (06/29/18) URINE BACTERIA CULTURE (11/06/17) URINE CULTURE/COLONY COUNT (11/06/17) URINE TEST (06/29/18) (1) Right lower quadrant pain SNOMED Code(s): 986135283 Code(s): R10.31 - RIGHT LOWER QUADRANT PAIN Priority: High Current Visit : Yes (2) Appendicitis SNOMED Code(s): 95034082 Code(s): K37 - UNSPECIFIED APPENDICITIS Priority: High Current Visit: Yes Qualifiers: Appendicitis type: acute appendicitis Acute appendicitis type: with localized peritonitis Appendicitis perforation presence: unspecified whether perforation present Appendicitis abscess presence: without abscess Problem List Initiated/Reviewed/Updated: Yes My Orders Last 24 Hours: My Active Orders 09/11/18 23:29 Antiembolic Devices [RC] PER UNIT ROUTINE Insert Urinary Catheter [OM.PC] Timed Oxygen Therapy [RC] ASDIRECTED RT Incentive Spirometry [RC] Q1HWA Skin Preparation [RC] .PREOP Urinary Catheter Assessment [RC] ASDIRECTED Urinary Catheter Assessment [RC] ASDIRECTED Urinary Catheter Assessment [RC] ASDIRECTED Vital Signs [RC] PER UNIT ROUTINE Morphine See Dose Instructions IVPUSH Q1H PRN Ondansetron [Zofran] 4 mg IVPUSH Q6H PRN cefOXitin [Mefoxin in Dextrose,Iso-Osm 2 GM/50 ML] 2 gm Premix Bag 1 bag IV ONETIME Antiembolic Hose [OM.PC] Routine Resuscitation Status Routine 09/11/18 23:30 Lactated Ringers @ 125 MLS/HR(1000ml) Lactated Ringers [Ringers, Lactated] 1, 000 ml IV ASDIRECTED 09/11/18 Dinner Nothing Per Oral Diet [DIET] 09/12/18 05:00 cefOXitin [Mefoxin in Dextrose,Iso-Osm 1 GM/50 ML] 1 gm Premix Bag 1 bag IV Q6H Plan: Laparoscopic appendectomy, possible open appendectomy. Both operative procedures, along with the risks, including, but not limited to, bleeding, infection, pneumonia, deep venous thrombosis, pulmonary emboli, myocardial infarction, and adjacent organ injury have been reviewed with the patient who voices understanding, offers no questions and agrees to proceed.
[2018-09-11] MEDS ORDERED: cefOXitin 2 GM in Sodium Chloride 0.9% 100 ML IV ONE (23:45)
[2018-09-11] MEDS ORDERED: Morphine 2 MG/ML Syringe IVPUSH ONE (23:54)
[2018-09-12] MEDS: Morphine 10 MG/ML Syringe IVPUSH PRN ×12 (01:18→23:37)
--- NOTE | 2018-09-12 07:47 | PCM.PREANE ---
Preanesthetic Assessment - Anesthesia/Transfusion/Family Hx Anesthesia History: Prior Anesthesia Without Reaction Family History of Anesthesia Reaction: No Transfusion History: No Prior Transfusion(s) Intubation History: Unknown - Review of Systems General: No Symptoms Pulmonary: No Symptoms Cardiovascular: No Symptoms Gastrointestinal: Abdominal Pain Neurological: No Symptoms Other: Reports: None - Physical Assessment O2 Sat by Pulse Oximetry: 98 Respiratory Rate: 16 Vital Signs: Last Vital Signs Temp 37 C 09/12/18 04:00 Pulse 62 09/12/18 04:00 Resp 16 09/12/18 04:00 BP 102/64 09/12/18 04:00 Pulse Ox 98 09/12/18 04:00 Height: 1.68 m Weight: 66.678 kg ASA Class: 2E Mental Status: Alert & Oriented x3 Airway Class: Mallampati = 2 Dentition: Reports: Normal Dentition, Broken Tooth/Teeth (left loer x1) Thyro-Mental Finger Breadths: 3 Mouth Opening Finger Breadths: 3 (tongue ) ROM/Head Extension: Full Lungs: Clear to Auscultation, Normal Respiratory Effort Cardiovascular: Regular Rate, Regular Rhythm - Lab Values: Laboratory Last Values WBC 11.90 K/uL (4.0-11.0) H 09/11/18 20:45 RBC 4.53 M/uL (4.30-5.90) 09/11/18 20:45 Hgb 13.7 g/dL (12.0-16.0) 09/11/18 20:45 Hct 41.6 % (36.0-46.0) 09/11/18 20:45 MCV 91.8 fL (80.0-98.0) 09/11/18 20:45 MCH 30.2 pg (27.0-32.0) 09/11/18 20:45 MCHC 32.9 g/dL (31.0-37.0) 09/11/18 20:45 RDW Std Deviation 45.7 fl (28.0-62.0) 09/11/18 20:45 RDW Coeff of Mindy 14 % (11.0-15.0) 09/11/18 20:45 Plt Count 261 K/uL (150-400) 09/11/18 20:45 MPV 8.90 fL (7.40-12.00) 09/11/18 20:45 Neut % (Auto) 75.0 % (48.0-80.0) 09/11/18 20:45 Lymph % (Auto) 16.9 % (16.0-40.0) 09/11/18 20:45 [place] % (Auto) 5.4 % (0.0-15.0) 09/11/18 20:45 Eos % (Auto) 2.5 % (0.0-7.0) 09/11/18 20:45 Baso % (Auto) 0.2 % (0.0-1.5) 09/11/18 20:45 Neut # (Auto) 8.9 K/uL (1.4-5.7) H 09/11/18 20:45 Lymph # (Auto) 2.0 K/uL (0.6-2.4) 09/11/18 20:45 [place] # (Auto) 0.6 K/uL (0.0-0.8) 09/11/18 20:45 Eos # (Auto) 0.3 K/uL (0.0-0.7) 09/11/18 20:45 Baso # (Auto) 0.0 K/uL (0.0-0.1) 09/11/18 20:45 Nucleated RBC % 0.0 /100WBC 09/11/18 20:45 Nucleated RBCs # 0 K/uL 09/11/18 20:45 Sodium 140 mmol/L (136-145) 09/11/18 20:45 Potassium 3.2 mmol/L (3.5-5.1) L 09/11/18 20:45 Chloride 105 mmol/L (98-107) 09/11/18 20:45 Carbon Dioxide 23.3 mmol/L (21.0-32.0) 09/11/18 20:45 BUN 14 mg/dL (7.0-18.0) 09/11/18 20:45 Creatinine 0.8 mg/dL (0.6-1.0) 09/11/18 20:45 Est Cr Clr Drug Dosing 90.13 mL/min 09/11/18 20:45 Estimated GFR (MDRD) > 60.0 ml/min 09/11/18 20:45 Glucose 106 mg/dL (74-106) 09/11/18 20:45 Calcium 9.1 mg/dL (8.5-10.1) 09/11/18 20:45 Total Bilirubin 0.3 mg/dL (0.2-1.0) 09/11/18 20:45 AST 22 IU/L (15-37) 09/11/18 20:45 ALT 34 IU/L (14-63) 09/11/18 20:45 Alkaline Phosphatase 133 U/L (46-116) H 09/11/18 20:45 Total Protein 7.2 g/dL (6.4-8.2) 09/11/18 20:45 Albumin 3.7 g/dL (3.4-5.0) 09/11/18 20:45 Globulin 3.5 g/dL (2.6-4.0) 09/11/18 20:45 Albumin/Globulin Ratio 1.1 (0.9-1.6) 09/11/18 20:45 Urine Color YELLOW 09/11/18 20:35 Urine Appearance CLEAR 09/11/18 20:35 Urine pH 7.0 (5.0-8.0) 09/11/18 20:35 Ur Specific [place] 1.010 (1.001-1.035) 09/11/18 20:35 Urine Protein NEGATIVE mg/dL (NEGATIVE) 09/11/18 20:35 Urine Glucose (UA) NEGATIVE mg/dL (NEGATIVE) 09/11/18 20:35 Urine Ketones NEGATIVE mg/dL (NEGATIVE) 09/11/18 20:35 Urine Occult Blood NEGATIVE (NEGATIVE) 09/11/18 20:35 Urine Nitrite NEGATIVE (NEGATIVE) 09/11/18 20:35 Urine Bilirubin NEGATIVE (NEGATIVE) 09/11/18 20:35 Urine Urobilinogen 0.2 EU/dL (<2.0) 09/11/18 20:35 Ur Leukocyte Esterase NEGATIVE (NEGATIVE) 09/11/18 20:35 Urine HCG, Qual NEGATIVE (NEGATIVE) 09/11/18 20:35 H. pylori IgG Antibody NEGATIVE (NEG) 09/11/18 20:45 - Allergies Allergies/Adverse Reactions: Allergies Allergy/AdvReac Type Severity Reaction Status Date / Time No Known Allergies Allergy Verified 09/11/18 20:26 - Blood Blood Available: No - Anesthesia Plan Pre-Op Medication Ordered: None - Acknowledgements Anesthesia Type Planned: General Anesthesia Pt an Appropriate Candidate for the Planned Anesthesia: Yes Alternatives and Risks of Anesthesia Discussed w Pt/Guardian: Yes Pt/Guardian Understands and Agrees with Anesthesia Plan: Yes PreAnesthesia Questionnaire HEENT History: Reports: None Cardiovascular History: Reports: Other (See Below) Other Cardiovascular History: hx of palpatations Respiratory History: Reports: None Gastrointestinal History: Reports: None Genitourinary History: Reports: UTI, Recurrent 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 elective AB Musculoskeletal History: Reports: Neck Pain, Chronic Neurological History: Reports: Other (See Below) Other Neuro History: headaches caused from neck pain Psychiatric History: Reports: None Endocrine/Metabolic History: Reports: None Hematologic History: Reports: None Immunologic History: Reports: None Oncologic (Cancer) History: Reports: None Dermatologic History: Reports: None - Infectious Disease History Infectious Disease History: Reports: None - Past Surgical History Head Surgeries/Procedures: Reports: None HEENT Surgical History: Reports: Cataract Surgery, Eye Surgery Other HEENT Surgeries/Procedures: 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, cataract surgery approx 4 yrs ago Cardiovascular Surgical History: Reports: None GI Surgical History: Reports: None Female Surgical History: Reports: D&C, Other (See Below) Other Female Surgeries/Procedures: cyst removed from vaginal area Endocrine Surgical History: Reports: None Neurological Surgical History: Reports: None Musculoskeletal Surgical History: Reports: None Oncologic Surgical History: Reports: None - SUBSTANCE USE Smoking Status *Q: Current Every Day Smoker Tobacco Use Within Last Twelve Months: Cigarettes Recreational Drug Use History: No - HOME MEDS Home Medications: Home Meds SUMAtriptan [Imitrex] 100 mg PO DAILY 06/29/18 [History] Ibuprofen 800 mg PO DAILY PRN 09/11/18 [History] - CURRENT (IN HOUSE) MEDS Current Meds: Current Medications Cefoxitin Sodium 1 gm/ Sodium (Chloride) 50 mls @ 100 mls/hr IV Q6H [facility] Last Admin: 09/12/18 05:51 Dose: 100 mls/hr Lactated Ringer's (Ringers, Lactated) 1,000 mls @ 125 mls/hr IV ASDIRECTED [facility] Last Admin: 09/12/18 00:13 Dose: 125 mls/hr Morphine Sulfate (Morphine) 0 mg IVPUSH Q1H PRN PRN Reason: Pain (severe 7-10) Last Admin: 09/12/18 06:47 Dose: 5 mg Ondansetron HCl (Zofran) 4 mg IVPUSH Q6H PRN PRN Reason: Nausea/Vomiting Discontinued Medications Sodium Chloride (Normal Saline) 1,000 mls @ 999 mls/hr IV STAT ONE Stop: 09/11/18 21:24 Last Admin: 09/11/18 20:44 Dose: 999 mls/hr Cefoxitin Sodium 2 gm/ Sodium (Chloride) 100 mls @ 200 mls/hr IV ONETIME ONE Stop: 09/12/18 00:14 Last Admin: 09/12/18 00:14 Dose: 200 mls/hr Iopamidol (Isovue Multipack-370 (76%)) 100 ml IVPUSH ONETIME STA Stop: 09/11/18 22:07 Last Admin: 09/11/18 22:07 Dose: 100 ml Ketorolac Tromethamine (Toradol) 30 mg IVPUSH ONETIME ONE Stop: 09/11/18 20:25 Last Admin: 09/11/18 20:44 Dose: 30 mg Morphine Sulfate (Morphine) 2 mg IVPUSH ONETIME ONE Stop: 09/11/18 23:55 Last Admin: 09/12/18 00:00 Dose: 2 mg Ondansetron HCl (Zofran) 4 mg IVPUSH ONETIME ONE Stop: 09/11/18 20:25 Last Admin: 09/11/18 20:44 Dose: 4 mg
[2018-09-12] MEDS ORDERED: Bupivacaine 0.5% 10 ML SDV ONE (09:33)
[2018-09-12] MEDS ORDERED: Midazolam 1 MG/ML 2 ML SDV ONE (09:35)
[2018-09-12] MEDS ORDERED: fentaNYL 100 MCG/2 ML SDV ONE ×3 (09:37→11:27)
[2018-09-12] MEDS ORDERED: Lidocaine 2% 100 MG/5 ML Syringe ONE (09:38)
[2018-09-12] MEDS ORDERED: Rocuronium 100 MG/10 ML Syringe ONE (09:40)
[2018-09-12] MEDS ORDERED: Propofol 200 MG/20 ML SDV ONE (09:40)
[2018-09-12] MEDS ORDERED: ceFAZolin 1 GM Vial ONE (10:11)
[2018-09-12] MEDS ORDERED: Glycopyrrolate 0.2 MG/ML SDV ONE (10:26)
[2018-09-12] MEDS ORDERED: Dexamethasone 4 MG/ML 5 ML MDV ONE (10:29)
[2018-09-12] MEDS ORDERED: Ondansetron 4 MG/2 ML SDV ONE ×2 (10:29→10:54)
[2018-09-12] MEDS ORDERED: Sugammadex Sodium 200 MG/2 ML VIAL ONE (10:54)
[2018-09-12] MEDS ORDERED: Ondansetron 4 MG/2 ML SDV IVPUSH PRN (11:05)
[2018-09-12] MEDS ORDERED: Acetaminophen 325 MG Tab PO PRN (11:05)
--- NOTE | 2018-09-12 11:08 | PCM.OPNOTE ---
- General Post-Op/Procedure Note Date of Surgery/Procedure: 09/12/18 Operative Procedure(s): Laparoscopic appendectomy Pre Op Diagnosis: Acute abdomen Post-Op Diagnosis: Acute appendicitis without perforation Anesthesia Technique: General ET Tube (ASA IIE) Primary Surgeon: Conrado Albright Travel Ticketing Reviewer: Irina Fabian Fluid Replacement, Intraop: 1,500 Output, Urine Amount: 10 EBL in mLs: 10 Condition: Stable Free Text/Narrative:: Intake & Output 09/11/18 09/12/18 09/12/18 19:59 03:59 11:59 Intake Total 423 Output Total 1000 Balance -577 DICTATION 116134 CPT CODE 25598
[2018-09-12] MEDS ORDERED: cefOXitin 1 GM in Premix Bag 1 BAG IV SCH (11:15)
[2018-09-12] MEDS ORDERED: HYDROmorphone 2 MG/ML Syringe IVPUSH PRN (11:22)
--- NOTE | 2018-09-12 11:59 | PCM.POSTAN ---
POST ANESTHESIA ASSESSMENT - MENTAL STATUS Mental Status: Alert, Oriented - RESPIRATORY Respiratory Status: Respiratory Rate WNL, Airway Patent, O2 Saturation Stable - CARDIOVASCULAR CV Status: Pulse Rate WNL, Blood Pressure Stable - GASTROINTESTINAL GI Status: No Symptoms - PAIN Pain Score: 5 - POST OP HYDRATION Hydration Status: Adequate & Stable - OBSERVATIONS Free Text/Narrative:: no anesthesia problems
[2018-09-12] MEDS: Acetaminophen/HYDROcodone 325-5 MG Tab PO PRN ×2 (13:15→19:56)
[2018-09-12] MEDS: cefOXitin 1 GM in Premix Bag 1 BAG IV SCH ×3 (13:23→23:38)
--- NOTE | 2018-09-12 16:20 | OR ---
SURGEON: Conrado Albright M.D. DATE OF PROCEDURE: 09/12/2018 OPERATION PERFORMED: Laparoscopic appendectomy. SEISMOLOGY TEACHER: Irina Fabian DO. CLINICAL EXERCISE SPECIALIST: PGY3. PREOPERATIVE DIAGNOSIS: Acute abdomen. POSTOPERATIVE DIAGNOSIS: Early acute appendicitis without perforation. INTRAOPERATIVE FLUID REPLACEMENT: 1500 mL of crystalloid. URINE OUTPUT: 10 mL. ESTIMATED BLOOD LOSS: 10 mL. ASA CLASSIFICATION: IIE. DESCRIPTION OF PROCEDURE: The patient was taken to the operating room and placed on the operating table in the supine position. Time-out was called for appropriate identification of the patient and procedure. Thigh-high TEDs and sequential compression boots were placed. Following satisfactory attainment of general endotracheal anesthesia, a Man catheter was placed in the patient's urinary bladder. The abdomen was prepped with DuraPrep solution and sterile drapes were applied. The skin just above the umbilicus was infiltrated with 0.5% Marcaine solution. Skin incision was made and deepened through the subcutaneous tissue obtaining hemostasis with the use of electrocautery. The Veress needle was introduced into the peritoneal cavity. The saline drop test was positive. Carbon dioxide pneumoperitoneum was established with the relief set at 13 cm of water. Once we had a satisfactory pneumoperitoneum, 5 mm camera and port were placed through the supraumbilical incision. The patient was now positioned with her head down and rolled to the left. Under camera vision, 12 mm suprapubic and 5 mm left lower quadrant ports were placed. Each incision was preemptively infiltrated with 0.5% Marcaine solution. With all the trocars in place, the appendix was able to be delivered up into the peritoneal cavity for easy visualization. The mesoappendix was taken down with the Harmonic scalpel. The base of the appendix was doubly ligated with 0 PDS endo-loops. The appendix was then divided with the Harmonic Scalpel and placed in an EndoCatch bag. The bag was left in situ. The wound was then inspected for hemostasis. The right lower quadrant was irrigated with 1% Ancef solution. The appendiceal closure appeared solid. There was no evidence of bleeding. After the fluid was aspirated, the 12 mm suprapubic port and EndoCatch containing appendix were removed. Under camera vision, the 5 mm left lower quadrant port was removed and finally the supraumbilical camera and port were removed. The wounds were inspected for hemostasis and small bleeding sites were electrocoagulated. The supraumbilical and suprapubic incisions were closed in 2 layers approximating the subcutaneous tissue with 3-0 Vicryl and the skin with subcuticular 4-0 Monocryl. The left lower quadrant port was closed with subcuticular 4-0 Monocryl. All incisions were steri-stripped and dressed with sterile Tegaderm pads. Sponge, needle, and instrument counts were all correct. Prior to emergence from anesthesia, the Man catheter was removed. Following emergence from anesthesia and extubation, the patient was taken to recovery room in stable condition. TD HUDSON /[id number]
[2018-09-12] MEDS: Lactated Ringers 1,000 ML IV SCH (16:25)
--- NOTE | 2018-09-12 18:27 | PCM.SURGPN ---
- General Info Date of Service: 09/12/18 Date of Surgery/Procedure: 09/12/18 Functional Status: Reports: Tolerating Diet, Incentive Spirometry Pain Score: 6 - Review of Systems General: Denies: Fever, Weakness, Fatigue, Malaise HEENT: Reports: No Symptoms. Denies: Visual Changes Pulmonary: Denies: Shortness of Breath, Pleuritic Chest Pain, Cough Cardiovascular: Denies: Chest Pain, Palpitations Gastrointestinal: Reports: Abdominal Pain. Denies: Constipation, Decreased Appetite, Diarrhea, Difficulty Swallowing, Nausea, Vomiting Genitourinary: Reports: No Symptoms Musculoskeletal: Reports: No Symptoms Skin: Reports: No Symptoms Neurological: Reports: No Symptoms Psychiatric: Reports: No Symptoms - Patient Data Vitals - Most Recent: Last Vital Signs Temp 97.2 F 09/12/18 12:50 Pulse 60 09/12/18 12:50 Resp 16 09/12/18 12:50 BP 119/70 09/12/18 12:50 Pulse Ox 96 09/12/18 14:39 Weight - Most Recent: 147 lb I&O - Last 24 Hours: Intake & Output 09/12/18 09/12/18 09/12/18 03:59 11:59 19:59 Intake Total 423 3000 100 Output Total 1000 20 Balance -577 2980 100 Lab Results Last 24 Hrs: Laboratory Results - last 24 hr 09/11/18 09/11/18 09/11/18 Range/Units 20:35 20:35 20:45 WBC 11.90 H (4.0-11.0) K/uL RBC 4.53 (4.30-5.90) M/uL Hgb 13.7 (12.0-16.0) g/dL Hct 41.6 (36.0-46.0) % MCV 91.8 (80.0-98.0) fL MCH 30.2 (27.0-32.0) pg MCHC 32.9 (31.0-37.0) g/dL RDW Std Deviation 45.7 (28.0-62.0) fl RDW Coeff of Mindy 14 (11.0-15.0) % Plt Count 261 (150-400) K/uL MPV 8.90 (7.40-12.00) fL Neut % (Auto) 75.0 (48.0-80.0) % Lymph % (Auto) 16.9 (16.0-40.0) % Wayne % (Auto) 5.4 (0.0-15.0) % Eos % (Auto) 2.5 (0.0-7.0) % Baso % (Auto) 0.2 (0.0-1.5) % Neut # (Auto) 8.9 H (1.4-5.7) K/uL Lymph # (Auto) 2.0 (0.6-2.4) K/uL Wayne # (Auto) 0.6 (0.0-0.8) K/uL Eos # (Auto) 0.3 (0.0-0.7) K/uL Baso # (Auto) 0.0 (0.0-0.1) K/uL Nucleated RBC % 0.0 /100WBC Nucleated RBCs # 0 K/uL Sodium (136-145) mmol/L Potassium (3.5-5.1) mmol/L Chloride (98-107) mmol/L Carbon Dioxide (21.0-32.0) mmol/L BUN (7.0-18.0) mg/dL Creatinine (0.6-1.0) mg/dL Est Cr Clr Drug Dosing mL/min Estimated GFR (MDRD) ml/min Glucose (74-106) mg/dL Calcium (8.5-10.1) mg/dL Total Bilirubin (0.2-1.0) mg/dL AST (15-37) IU/L ALT (14-63) IU/L Alkaline Phosphatase (46-116) U/L Total Protein (6.4-8.2) g/dL Albumin (3.4-5.0) g/dL Globulin (2.6-4.0) g/dL Albumin/Globulin Ratio (0.9-1.6) Urine Color YELLOW Urine Appearance CLEAR Urine pH 7.0 (5.0-8.0) Ur Specific Hunters 1.010 (1.001-1.035) Urine Protein NEGATIVE (NEGATIVE) mg/dL Urine Glucose (UA) NEGATIVE (NEGATIVE) mg/dL Urine Ketones NEGATIVE (NEGATIVE) mg/dL Urine Occult Blood NEGATIVE (NEGATIVE) Urine Nitrite NEGATIVE (NEGATIVE) Urine Bilirubin NEGATIVE (NEGATIVE) Urine Urobilinogen 0.2 (<2.0) EU/dL Ur Leukocyte Esterase NEGATIVE (NEGATIVE) Urine HCG, Qual NEGATIVE (NEGATIVE) H. pylori IgG Antibody (NEG) 09/11/18 09/11/18 Range/Units 20:45 20:45 WBC (4.0-11.0) K/uL RBC (4.30-5.90) M/uL Hgb (12.0-16.0) g/dL Hct (36.0-46.0) % MCV (80.0-98.0) fL MCH (27.0-32.0) pg MCHC (31.0-37.0) g/dL RDW Std Deviation (28.0-62.0) fl RDW Coeff of Mindy (11.0-15.0) % Plt Count (150-400) K/uL MPV (7.40-12.00) fL Neut % (Auto) (48.0-80.0) % Lymph % (Auto) (16.0-40.0) % Wayne % (Auto) (0.0-15.0) % Eos % (Auto) (0.0-7.0) % Baso % (Auto) (0.0-1.5) % Neut # (Auto) (1.4-5.7) K/uL Lymph # (Auto) (0.6-2.4) K/uL Wayne # (Auto) (0.0-0.8) K/uL Eos # (Auto) (0.0-0.7) K/uL Baso # (Auto) (0.0-0.1) K/uL Nucleated RBC % /100WBC Nucleated RBCs # K/uL Sodium 140 (136-145) mmol/L Potassium 3.2 L (3.5-5.1) mmol/L Chloride 105 (98-107) mmol/L Carbon Dioxide 23.3 (21.0-32.0) mmol/L BUN 14 (7.0-18.0) mg/dL Creatinine 0.8 (0.6-1.0) mg/dL Est Cr Clr Drug Dosing 90.13 mL/min Estimated GFR (MDRD) > 60.0 ml/min Glucose 106 (74-106) mg/dL Calcium 9.1 (8.5-10.1) mg/dL Total Bilirubin 0.3 (0.2-1.0) mg/dL AST 22 (15-37) IU/L ALT 34 (14-63) IU/L Alkaline Phosphatase 133 H (46-116) U/L Total Protein 7.2 (6.4-8.2) g/dL Albumin 3.7 (3.4-5.0) g/dL Globulin 3.5 (2.6-4.0) g/dL Albumin/Globulin Ratio 1.1 (0.9-1.6) Urine Color Urine Appearance Urine pH (5.0-8.0) Ur Specific Hunters (1.001-1.035) Urine Protein (NEGATIVE) mg/dL Urine Glucose (UA) (NEGATIVE) mg/dL Urine Ketones (NEGATIVE) mg/dL Urine Occult Blood (NEGATIVE) Urine Nitrite (NEGATIVE) Urine Bilirubin (NEGATIVE) Urine Urobilinogen (<2.0) EU/dL Ur Leukocyte Esterase (NEGATIVE) Urine HCG, Qual (NEGATIVE) H. pylori IgG Antibody NEGATIVE (NEG) Med Orders - Current: Current Medications Acetaminophen (Tylenol) 325 mg PO Q4H PRN PRN Reason: Fever Greater Than 101 Hydrocodone Bitart/Acetaminophen ([place] 325-5 Mg) 1 tab PO Q6H PRN PRN Reason: Pain (moderate 4-6) Last Admin: 09/12/18 13:15 Dose: 1 tab Hydromorphone HCl (Dilaudid) 1 - 2 mg IVPUSH .ONETIME PRN PRN Reason: Pain Cefoxitin Sodium 1 gm/ Premix 50 mls @ 100 mls/hr IV Q6H [facility] Last Admin: 09/12/18 18:03 Dose: 100 mls/hr Lactated Ringer's (Ringers, Lactated) 1,000 mls @ 125 mls/hr IV ASDIRECTED [facility] Last Admin: 09/12/18 16:25 Dose: 125 mls/hr Morphine Sulfate (Morphine) 0 mg IVPUSH Q1H PRN PRN Reason: Pain (severe 7-10) Last Admin: 09/12/18 18:12 Dose: 3 mg Ondansetron HCl (Zofran) 4 mg IVPUSH Q6H PRN PRN Reason: Nausea/Vomiting Discontinued Medications Bupivacaine HCl (Sensorcaine-Mpf 0.5%) Confirm Administered Dose 10 ml .ROUTE .STK-MED ONE Stop: 09/12/18 09:34 Cefazolin Sodium (Ancef) Confirm Administered Dose 1 gm .ROUTE .[facility]-MED ONE Stop: 09/12/18 10:12 Dexamethasone (Dexamethasone) Confirm Administered Dose 20 mg .ROUTE .[facility]-MED ONE Stop: 09/12/18 10:30 Fentanyl (Sublimaze) Confirm Administered Dose 100 mcg .ROUTE .[facility]-MED ONE Stop: 09/12/18 09:38 Fentanyl (Sublimaze) Confirm Administered Dose 100 mcg .ROUTE .[facility]-MED ONE Stop: 09/12/18 10:33 Fentanyl (Sublimaze) Confirm Administered Dose 100 mcg .ROUTE .[facility]-MED ONE Stop: 09/12/18 11:28 Last Admin: 09/12/18 17:51 Dose: Not Given Glycopyrrolate (Robinul) Confirm Administered Dose 0.4 mg .ROUTE .[facility]-MED ONE Stop: 09/12/18 10:27 Sodium Chloride (Normal Saline) 1,000 mls @ 999 mls/hr IV STAT ONE Stop: 09/11/18 21:24 Last Admin: 09/11/18 20:44 Dose: 999 mls/hr Cefoxitin Sodium 2 gm/ Sodium (Chloride) 100 mls @ 200 mls/hr IV ONETIME ONE Stop: 09/12/18 00:14 Last Admin: 09/12/18 00:14 Dose: 200 mls/hr Cefoxitin Sodium 1 gm/ Sodium (Chloride) 50 mls @ 100 mls/hr IV Q6H [facility] Last Admin: 09/12/18 05:51 Dose: 100 mls/hr Lactated Ringer's (Ringers, Lactated) 1,000 mls @ 125 mls/hr IV ASDIRECTED [facility] Last Admin: 09/12/18 00:13 Dose: 125 mls/hr Cefoxitin Sodium 1 gm/ Premix 50 mls @ 100 mls/hr IV Q8H [facility] Stop: 09/12/18 19:44 Iopamidol (Isovue Multipack-370 (76%)) 100 ml IVPUSH ONETIME STA Stop: 09/11/18 22:07 Last Admin: 09/11/18 22:07 Dose: 100 ml Ketorolac Tromethamine (Toradol) 30 mg IVPUSH ONETIME ONE Stop: 09/11/18 20:25 Last Admin: 09/11/18 20:44 Dose: 30 mg Lidocaine HCl (Xylocaine 2%) Confirm Administered Dose 100 mg .ROUTE .STK-MED ONE Stop: 09/12/18 09:39 Midazolam HCl (Versed 1 Mg/Ml) Confirm Administered Dose 2 mg .ROUTE .STK-MED ONE Stop: 09/12/18 09:36 Morphine Sulfate (Morphine) 0 mg IVPUSH Q1H PRN PRN Reason: Pain (severe 7-10) Last Admin: 09/12/18 08:03 Dose: 5 mg Morphine Sulfate (Morphine) 2 mg IVPUSH ONETIME ONE Stop: 09/11/18 23:55 Last Admin: 09/12/18 00:00 Dose: 2 mg Ondansetron HCl (Zofran) 4 mg IVPUSH ONETIME ONE Stop: 09/11/18 20:25 Last Admin: 09/11/18 20:44 Dose: 4 mg Ondansetron HCl (Zofran) 4 mg IVPUSH Q6H PRN PRN Reason: Nausea/Vomiting Ondansetron HCl (Zofran) Confirm Administered Dose 8 mg .ROUTE .STK-MED ONE Stop: 09/12/18 10:30 Ondansetron HCl (Zofran) Confirm Administered Dose 8 mg .ROUTE .STK-MED ONE Stop: 09/12/18 10:55 Propofol (Diprivan 20 Ml) Confirm Administered Dose 200 mg .ROUTE .STK-MED ONE Stop: 09/12/18 09:41 Rocuronium Pelion (Zemuron) Confirm Administered Dose 100 mg .ROUTE .STK-MED ONE Stop: 09/12/18 09:41 Sugammadex Sodium (Bridion) Confirm Administered Dose 200 mg .ROUTE .STK-MED ONE Stop: 09/12/18 10:55 - Exam Wound/Incisions: Dressing Dry and Intact General: Alert, Oriented, Cooperative, Mild Distress HEENT: Pupils Equal, Pupils Reactive. No: Scleral Icterus Neck: Supple Lungs: Clear to Auscultation, Normal Respiratory Effort Cardiovascular: Regular Rate, Regular Rhythm. No: Tachycardia GI/Abdominal Exam: Normal Bowel Sounds, Soft, No Distention, No Mass, Tender. No: Guarding, Rigid, Rebound Extremities: Normal Inspection, Normal Range of Motion, Non-Tender, No Pedal Edema, Normal Capillary Refill Skin: Warm, Dry, Intact Neurological: No New Focal Deficit Psy/Mental Status: Alert, Normal Affect, Normal Mood - Problem List & Annotations (1) Right lower quadrant pain SNOMED Code(s): 747638593 Code(s): R10.31 - RIGHT LOWER QUADRANT PAIN Status: Acute Priority: High Current Visit: Yes (2) Appendicitis SNOMED Code(s): 56155553 Code(s): K37 - UNSPECIFIED APPENDICITIS Status: Acute Priority: High Current Visit: Yes Qualifiers: Appendicitis type: acute appendicitis Acute appendicitis type: with localized peritonitis Appendicitis perforation presence: unspecified whether perforation present Appendicitis abscess presence: without abscess - Problem List Review Problem List Initiated/Reviewed/Updated: Yes - My Orders Last 24 Hours: Active Orders 24 hr Category Date Time Status Admission Status [Patient Status] [ADT] Stat ADT 09/11/18 23:11 Active Antiembolic Devices [RC] PER UNIT ROUTINE Care 09/11/18 23:29 Active Insert Urinary Catheter [OM.PC] Timed Care 09/11/18 23:29 Ordered Notify Provider Consults [RC] ASDIRECTED Care 09/11/18 23:11 Active Oxygen Therapy [RC] ASDIRECTED Care 09/11/18 23:29 Active Oxygen Therapy [RC] PRN Care 09/12/18 11:04 Active Pulse Oximetry [RC] ASDIRECTED Care 09/12/18 11:04 Active RT Incentive Spirometry [RC] Q1HWA Care 09/11/18 23:29 Active RT Incentive Spirometry [RC] Q1HWA Care 09/12/18 11:04 Active Skin Preparation [RC] .PREOP Care 09/11/18 23:29 Active Up ad Kayley [RC] PER UNIT ROUTINE Care 09/12/18 11:04 Active Urinary Catheter Assessment [RC] ASDIRECTED Care 09/11/18 23:29 Active Urinary Catheter Assessment [RC] ASDIRECTED Care 09/11/18 23:29 Active Urinary Catheter Assessment [RC] ASDIRECTED Care 09/11/18 23:29 Active Vital Signs [RC] PER UNIT ROUTINE Care 09/12/18 11:04 Active Vital Signs [RC] Q4H Care 09/11/18 23:29 Active Consult to Physician [CONS] Stat Cons 09/11/18 23:09 Active Advance Diet Instructions [DIET] Diet 09/12/18 Dinner Active Full Liquid Diet [DIET] Diet 09/12/18 Lunch Active Acetaminophen [Tylenol] Med 09/12/18 11:05 Active 325 mg PO Q4H PRN Acetaminophen/HYDROcodone [[place] 325-5 MG] Med 09/12/18 11:05 Active 1 tab PO Q6H PRN HYDROmorphone [Dilaudid] Med 09/12/18 11:22 Active 1 - 2 mg IVPUSH .ONETIME PRN Lactated Ringers [Ringers, Lactated] 1,000 ml Med 09/12/18 11:15 Active IV ASDIRECTED Morphine Med 09/12/18 11:05 Active See Dose Instructions IVPUSH Q1H PRN Ondansetron [Zofran] Med 09/12/18 11:05 Active 4 mg IVPUSH Q6H PRN cefOXitin [Mefoxin in Dextrose,Iso-Osm 1 GM/50 ML] 1 gm Med 09/12/18 12:00 Active Premix Bag 1 bag IV Q6H Antiembolic Hose [OM.PC] Routine Oth 09/11/18 23:29 Ordered Resuscitation Status Routine Resus Stat 09/11/18 23:29 Ordered Medication Orders Acetaminophen (Tylenol) 325 mg PO Q4H PRN PRN Reason: Fever Greater Than 101 Hydrocodone Bitart/Acetaminophen ([place] 325-5 Mg) 1 tab PO Q6H PRN PRN Reason: Pain (moderate 4-6) Last Admin: 09/12/18 13:15 Dose: 1 tab Hydromorphone HCl (Dilaudid) 1 - 2 mg IVPUSH .ONETIME PRN PRN Reason: Pain Cefoxitin Sodium 1 gm/ Premix 50 mls @ 100 mls/hr IV Q6H [facility] Last Admin: 09/12/18 18:03 Dose: 100 mls/hr Infusion: 09/12/18 13:53 Dose: 100 mls/hr Admin: 09/12/18 13:23 Dose: 100 mls/hr Lactated Ringer's (Ringers, Lactated) 1,000 mls @ 125 mls/hr IV ASDIRECTED [facility] Last Admin: 09/12/18 16:25 Dose: 125 mls/hr Morphine Sulfate (Morphine) 0 mg IVPUSH Q1H PRN PRN Reason: Pain (severe 7-10) Last Admin: 09/12/18 18:12 Dose: 3 mg Admin: 09/12/18 16:25 Dose: 3 mg Admin: 09/12/18 15:13 Dose: 5 mg Ondansetron HCl (Zofran) 4 mg IVPUSH Q6H PRN PRN Reason: Nausea/Vomiting - Assessment Assessment (Free Text/Narrative):: Patient still notes some crampy lower abdominal pain will slightly different than before surgery. She is still requiring parenteral analgesics to control her discomfort. - Plan Plan (Free Text/Narrative):: We'll keep patient in the hospital tonight for pain control. I anticipate that she will be able to be discharged tomorrow.
[2018-09-13] MEDS: Lactated Ringers 1,000 ML IV SCH (01:38)
[2018-09-13] MEDS: Acetaminophen/HYDROcodone 325-5 MG Tab PO PRN ×2 (01:38→08:52)
[2018-09-13] MEDS: Morphine 10 MG/ML Syringe IVPUSH PRN ×2 (01:40→04:55)
[2018-09-13] MEDS: cefOXitin 1 GM in Premix Bag 1 BAG IV SCH (04:59)
[2018-09-13 07:54] VITALS: BP 115/70
--- NOTE | 2018-09-13 07:59 | PCM48HPAN ---
Post Anesthesia Note - EVALUATION WITHIN 48HRS OF ANESTHETIC Vital Signs in Normal Range: Yes Patient Participated in Evaluation: Yes Respiratory Function Stable: Yes Airway Patent: Yes Cardiovascular Function Stable: Yes Hydration Status Stable: Yes Pain Control Satisfactory: Yes Nausea and Vomiting Control Satisfactory: Yes Mental Status Recovered: Yes Resp Rate: 17 - COMMENTS/OBSERVATIONS Free Text/Narrative:: No anesthesia complications
== END 2018-09-13 10:30 | disposition home or self-care (01) ==
LOC: MW.ED 20:15 → MW.MS 23:11
PROVIDERS: ADMIT Surgery; ATTEND Surgery
DX: K35.30 Acute appendicitis with localized peritonitis, without perforation or gangrene (principal); F17.210 Nicotine dependence, cigarettes, uncomplicated; Z79.899 Other long term (current) drug therapy
CPT/HCPCS: 36415; 44970; 74177; 80053; 81003; 81025; 85025; 86677; 88304; 96361; 96365; 96366; 96375; 96376; 99285; A9270; G0378; J0690; J0694; J1100; J1885; J2001; J2250; J2270; J2405; J2704; J3010; J3490; J7030; J7040; J7050; J7120; Q9967; 96374

== ENCOUNTER 2019-09-27 06:35 | Emergency (ER) | payer BC, OTHER ==
[2019-09-27] MEDS ORDERED: Sodium Chloride 0.9% 1,000 ML IV ONE (07:16)
[2019-09-27] MEDS ORDERED: Ketorolac 30 MG/ML SDV IVPUSH ONE (07:17)
[2019-09-27] MEDS ORDERED: Ondansetron 4 MG/2 ML SDV IVPUSH ONE (07:17)
--- NOTE | 2019-09-27 07:25 | EDM.PDOC ---
ED HPI GENERAL MEDICAL PROBLEM - General Chief Complaint: Gastrointestinal Problem Stated Complaint: HEADACHE AND VOMITING Time Seen by Provider: 09/27/19 07:10 Source of Information: Reports: Patient History Limitations: Reports: No Limitations - History of Present Illness INITIAL COMMENTS - FREE TEXT/NARRATIVE: This 38 year old female presents to te ED with a chief complaint of a migraine headache for two days with associated nausea and vomiting. She states that she cannot keep anything down not even water. She states that she has a history of Migraines and that this one is similar to her other ones. She denies any visual disturbances, lightheadedness or neurologic complaints. She denies any other complaints at this time. Onset: Gradual (two days) headache Pain Score (Numeric/FACES): 10 - Related Data Allergies Allergy/AdvReac Type Severity Reaction Status Date / Time No Known Allergies Allergy Verified 09/27/19 06:45 Home Meds: Home Meds Ondansetron [Zofran] 4 mg PO Q4H PRN 5 Days #20 tab 09/27/19 [Rx] Past Medical History HEENT History: Reports: None Cardiovascular History: Reports: Other (See Below) Other Cardiovascular History: hx of palpatations Respiratory History: Reports: None Gastrointestinal History: Reports: None Genitourinary History: Reports: UTI, Recurrent NOTCHER History: Reports: , Other (See Below) Other NOTCHER History: vaginal cyst excision. elective AB Musculoskeletal History: Reports: Neck Pain, Chronic Neurological History: Reports: Other (See Below) Other Neuro History: headaches caused from neck pain Psychiatric History: Reports: None Endocrine/Metabolic History: Reports: None Hematologic History: Reports: None Immunologic History: Reports: None Oncologic (Cancer) History: Reports: None Dermatologic History: Reports: None - Infectious Disease History Infectious Disease History: Reports: None - Past Surgical History Head Surgeries/Procedures: Reports: None HEENT Surgical History: Reports: Cataract Surgery, Eye Surgery Other HEENT Surgeries/Procedures: 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, cataract surgery approx 4 yrs ago Cardiovascular Surgical History: Reports: None GI Surgical History: Reports: None Female Surgical History: Reports: Other (See Below) Other Female Surgeries/Procedures: cyst removed from vaginal area Endocrine Surgical History: Reports: None Neurological Surgical History: Reports: None Musculoskeletal Surgical History: Reports: None Oncologic Surgical History: Reports: None Social & Family History - Family History Family Medical History: Noncontributory Cardiac: Reports: CAD, Hypertension, Other (See Below) Other Cardiac Family History: heart problems (patient dont know specificts of it ) Respiratory: Reports: None GI: Reports: None : Reports: None OBGYN: Reports: None Musculoskeletal: Reports: None Endocrine/Metabolic: Reports: Diabetes, type II - Tobacco Use Smoking Status *Q: Current Some Day Smoker Years of Tobacco use: 5 Packs/Tins Daily: 1 - Caffeine Use Caffeine Use: Reports: Coffee, Energy Drinks, Soda, Tea - Recreational Drug Use Recreational Drug Use: No ED ROS GENERAL - Review of Systems Review Of Systems: See Below Constitutional: Reports: Weakness (generalized weakness) HEENT: Denies: Vertigo, Vision Change Respiratory: Reports: No Symptoms Cardiovascular: Reports: No Symptoms Endocrine: Reports: No Symptoms GI/Abdominal: Reports: Nausea, Vomiting : Reports: No Symptoms Musculoskeletal: Reports: No Symptoms Skin: Reports: No Symptoms Neurological: Reports: Headache (migraine type headache which is similar to her headaches in the past.) - Physical Exam Exam: See Below Exam Limited By: No Limitations General Appearance: Alert, WD/WN, No Apparent Distress (but was complaining of a headache. She denies any neck stiffness or pain. No visual problems. No photophobia) Eye Exam: Bilateral Eye: EOMI, Normal Fundi, Normal Inspection, PERRL (4mm) Ears: Normal External Exam, Normal Canal, Hearing Grossly Normal, Normal TMs Nose: Normal Inspection, Normal Mucosa, No Blood Throat/Mouth: Normal Inspection, Normal Lips, Normal Oropharynx, Normal Voice Head Exam: Atraumatic, Normocephalic. No: Facial Tenderness, Sinus Tenderness Neck: Normal Inspection, Supple, Non-Tender, Full Range of Motion Respiratory/Chest: No Respiratory Distress, Lungs Clear, Normal Breath Sounds Cardiovascular: Normal Peripheral Pulses, Regular Rate, Rhythm, No Edema, No Gallop, No JVD, No Murmur GI/Abdominal: Normal Bowel Sounds, Soft, Non-Tender, No Organomegaly, No Distention, No Abnormal Bruit, No Mass. No: Guarding (Female) Exam: Deferred Rectal (Female) Exam: Deferred Neuro Exam (Abbreviated): Alert, Oriented (times 4), CN II-XII Intact, Normal Cognition, Normal Gait, Normal Reflexes, No Motor/Sensory Deficits DTR: 3+: Bicep (R), Bicep (L), Patella (R), Patella (L), Achilles (R), Achilles (L) Back Exam: Normal Inspection, Full Range of Motion Extremities: Normal Inspection, Normal Range of Motion, Non-Tender, No Pedal Edema, Normal Capillary Refill Psychiatric: Normal Affect, Normal Mood Skin Exam: Warm, Dry, Intact. No: Mottled, Pallor, Petechiae, Rash Course - Vital Signs Text/Narrative:: I have reviewed her CT of the brain which is unremarkable. She feels much better at this time. She will be discharged. She agrees with the discharge plan. Last Recorded V/S: Last Vital Signs Temp 96.7 F L 09/27/19 06:46 Pulse 78 09/27/19 06:46 Resp 14 09/27/19 06:46 BP 112/52 L 09/27/19 06:46 Pulse Ox 98 09/27/19 06:46 - Orders/Labs/Meds Meds: Medications Discontinued Medications Generic Name Dose Route Start Last Admin Trade Name Freq PRN Reason Stop Dose Admin Sodium Chloride 1,000 mls @ 1,000 mls/hr 09/27/19 07:16 09/27/19 07:23 Normal Saline IV 09/27/19 08:15 1,000 mls/hr .Bolus ONE Administration Ketorolac Tromethamine 30 mg 09/27/19 07:17 09/27/19 07:23 Toradol IVPUSH 09/27/19 07:18 30 mg ONETIME ONE Administration Ondansetron HCl 4 mg 09/27/19 07:17 09/27/19 07:24 Zofran IVPUSH 09/27/19 07:18 4 mg ONETIME ONE Administration Departure - Departure Time of Disposition: 09:17 Disposition: Home, Self-Care 01 Condition: Good Clinical Impression: Migraine headache without aura Qualifiers: Status migrainosus presence: without status migrainosus Intractability: not intractable Qualified Code(s): G43.009 - Migraine without aura, not intractable , without status migrainosus - Discharge Information *PRESCRIPTION DRUG MONITORING PROGRAM REVIEWED*: Yes *COPY OF PRESCRIPTION DRUG MONITORING REPORT IN PATIENT SACHI: Yes Prescriptions: Ondansetron [Zofran] 4 mg PO Q4H PRN 5 Days #20 tab PRN Reason: Nausea/Vomiting Instructions: Dehydration, Adult, [id number], Recurrent Migraine Headache, [id number] Referrals: PCP,None [Primary Care Provider] - Forms: ED Department Discharge Additional Instructions: Take all medications as directed. Follow up with your PCP in the next two to four days. Drink plenty of clear liquids for the next 24-48 hours. Rest for the next 24 hours. Return to the ED if your condition gets worse or should you have any questions or concerns. The following information is given to patients seen in the emergency department who are being discharged to home. This information is to outline your options for follow-up care. We provide all patients seen in our emergency department with a follow-up referral. The need for follow-up, as well as the timing and circumstances, are variable depending upon the specifics of your emergency department visit. If you don't have a primary care physician on staff, we will provide you with a referral. We always advise you to contact your personal physician following an emergency department visit to inform them of the circumstance of the visit and for follow-up with them and/or the need for any referrals to a consulting specialist. The emergency department will also refer you to a specialist when appropriate. This referral assures that you have the opportunity for follow-up care with a specialist. All of these measure are taken in an effort to provide you with optimal care, which includes your follow-up. Under all circumstances we always encourage you to contact your private physician who remains a resource for coordinating your care. When calling for follow-up care, please make the office aware that this follow-up is from your recent emergency room visit. If for any reason you are refused follow-up, please contact the [facility] Emergency Department at and asked to speak to the emergency department charge nurse. Sepsis Event Note - Evaluation Sepsis Screening Result: No Definite Risk - Focused Exam Vital Signs: Vital Signs Temp Pulse Resp BP Pulse Ox 09/27/19 06:46 96.7 F L 78 14 112/52 L 98 Date Exam was Performed: 09/27/19 Time Exam was Performed: 09:17
--- NOTE | 2019-09-27 09:07 | CT ---
Head CT Technique: Multiple axial sections through the brain were obtained. Comparison: No prior intracranial imaging is available. Findings: Ventricles along with basal cisterns and sulci over the convexities are within normal limits for the patient's age. No abnormal parenchymal densities are seen. No evidence of intracranial hemorrhage. No midline shift or mass-effect is seen. Bone window settings were reviewed. No acute calvarial finding is seen. Very minimal mucosal thickening is seen within the inferior right mastoid sinuses. Visualized paranasal sinuses are clear. Impression: 1. Minimal mastoid sinus finding which is most likely chronic and of no acute significance. 2. No acute intracranial abnormality is seen. Diagnostic code #2 This report was dictated in MDT
[2019-09-27 09:28] VITALS: BP 109/55; PULSE 74
== END 2019-09-27 09:29 | disposition home or self-care (01) ==
LOC: MW.ED 06:35
DX: G43.009 Migraine without aura, not intractable, without status migrainosus (principal)
CPT/HCPCS: 70450; 96361; 96374; 96375; 99284; J1885; J2405; J7030; 99283

== ENCOUNTER 2020-09-16 18:42 | Emergency (ER) | payer OTHER ==
--- NOTE | 2020-09-16 19:02 | EDM.PDOC ---
ED HPI GENERAL MEDICAL PROBLEM - General Chief Complaint: Genitourinary Problem Stated Complaint: UTI Time Seen by Provider: 09/16/20 18:46 Source of Information: Reports: Patient History Limitations: Reports: No Limitations - History of Present Illness INITIAL COMMENTS - FREE TEXT/NARRATIVE: HISTORY AND PHYSICAL: History of present illness: Patient is a 39-year-old female who presents to the emergency room with complaints of dysuria that started yesterday. Concerned she has a bladder infection. Patient denies any fever, chills, headache, change in vision, syncope or near syncope. Denies any chest pain, back pain, shortness of breath or cough. Denies any abdominal pain, nausea, vomiting, diarrhea, constipation, or blood in urine or stool. She denies any vaginal discharge or concerns of STIs. No concern for . Patient has been eating and drinking appropriately. Review of systems: As per history of present illness and below otherwise all systems reviewed and negative. Past medical history: As per history of present illness and as reviewed below otherwise noncontributory. Surgical history: As per history of present illness and as reviewed below otherwise noncontributory. Social history: See social history for further information Family history: As per history of present illness and as reviewed below otherwise noncontributory. Physical exam: General: Well developed and well nourished 39-year-old female. Alert and orientated x 3. Nontoxic in appearance and in no acute distress. Vital signs are stable and have been reviewed by me. Nursing notes were reviewed. HEENT: Atraumatic, normocephalic, pupils equal and reactive bilaterally, negative for conjunctival pallor or scleral icterus, mucous membranes moist, TMs normal bilaterally, throat clear, neck supple, nontender, trachea midline. No drooling or trismus noted. No meningeal signs. No hot potato voice noted. Lungs: Clear to auscultation bilaterally. No wheezes, rales, or rhonchi. Chest nontender. Normal work of breathing, no accessory muscles used. Heart: S1S2, regular rate and rhythm without overt murmur, gallops, or rubs. No JVD. No peripheral edema Abdomen: Soft, nondistended, nontender. Normoactive bowel sounds. Negative for masses or costovertebral tenderness. Skin: Intact, warm, dry. No lesions or rashes noted. Hematologic: No petechiae or purpra. Mucosa appropriate color and normal nail bed color and refill. Extremities: Atraumatic, moves all extremities per self without difficulty or deficits, negative for cords or calf pain. Neurovascular unremarkable. Neuro: Awake, alert, oriented. Cranial nerves II through XII unremarkable. Cerebellum unremarkable. Motor and sensory unremarkable throughout. Exam nonfocal. Psychiatric: Mood and affect are appropriate. Normal thought process. Answering questions appropriately. Notes: *This patient was seen and evaluated during the 2019 SARS-CoV-2 novel coronavirus pandemic period. Community viral transmission is ongoing at time of this encounter and the emergency department is operating under pandemic response procedures. I have talked with the patient about today's findings, in addition to providing specific details for plan of care. Reassessment at the time of disposition demonstrates that the patient is in no acute distress. The patient is stable for discharge, counseling was provided and we discussed in great detail signs and symptoms that would prompt them to return to the Emergency Department. Medication, follow up and supportive care measures were reviewed and discussed. Voices understanding and is agreeable to plan of care. Denies any further questions or concerns at this time. Diagnostics: UA/UC Therapeutics: Pyridium, Bactrim Prescription: Pyridium, Bactrim Impression: UTI Plan: 1. You were evaluated today on an emergent basis. You have a bladder infection. Please take the antibiotic as directed. 2. You can alternate Tylenol and ibuprofen as needed for pain and fever m anagement. 3. We encourage you to follow up with your primary care provider and/or recommended specialist in the next few days for re-evaluation and further care/management. 4. If your symptoms should worsen, new symptoms develop or any of the signs and symptoms we discussed should arise please return to the emergency room or call 911 (if needed). Definitive disposition and diagnosis as appropriate pending reevaluation and review of above. - Related Data Allergies Allergy/AdvReac Type Severity Reaction Status Date / Time No Known Allergies Allergy Verified 09/16/20 19:10 Home Meds: Home Meds Ondansetron [Zofran] 4 mg PO Q4H PRN 5 Days #20 tab 09/27/19 [Rx] Cyclobenzaprine [Flexeril] 5 mg PO DAILY 09/16/20 [History] SUMAtriptan succinate [Imitrex] 50 mg PO ASDIRECTED PRN 09/16/20 [History] Sulfamethoxazole/Trimethoprim [Bactrim Ds Tablet] 1 each PO BID 5 Days #10 tablet 09/16/20 [Rx] hydrOXYzine HCL [hydrOXYzine] 25 mg PO DAILY 09/16/20 [History] Past Medical History HEENT History: Reports: None Cardiovascular History: Reports: Other (See Below) Other Cardiovascular History: hx of palpatations Respiratory History: Reports: None Gastrointestinal History: Reports: None Genitourinary History: Reports: UTI, Recurrent 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 elective AB Musculoskeletal History: Reports: Neck Pain, Chronic Neurological History: Reports: Other (See Below) Other Neuro History: headaches caused from neck pain Psychiatric History: Reports: None Endocrine/Metabolic History: Reports: None Hematologic History: Reports: None Immunologic History: Reports: None Oncologic (Cancer) History: Reports: None Dermatologic History: Reports: None - Infectious Disease History Infectious Disease History: Reports: None - Past Surgical History Head Surgeries/Procedures: Reports: None HEENT Surgical History: Reports: Cataract Surgery, Eye Surgery Other HEENT Surgeries/Procedures: 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, cataract surgery approx 4 yrs ago Cardiovascular Surgical History: Reports: None GI Surgical History: Reports: None Female Surgical History: Reports: Other (See Below) Other Female Surgeries/Procedures: cyst removed from vaginal area Endocrine Surgical History: Reports: None Neurological Surgical History: Reports: None Musculoskeletal Surgical History: Reports: None Oncologic Surgical History: Reports: None Social & Family History - Family History Family Medical History: No Pertinent Family History Cardiac: Reports: CAD, Hypertension, Other (See Below) Other Cardiac Family History: heart problems (patient dont know specificts of it) Respiratory: Reports: None GI: Reports: None : Reports: None OBGYN: Reports: None Musculoskeletal: Reports: None Endocrine/Metabolic: Reports: Diabetes, type II - Caffeine Use Caffeine Use: Reports: Coffee, Energy Drinks, Soda, Tea ED ROS GENERAL - Review of Systems Review Of Systems: Comprehensive ROS is negative, except as noted in HPI. ED EXAM, RENAL/ - Physical Exam Exam: See Below (See dictation) Course - Vital Signs Last Recorded V/S: Last Vital Signs Temp 97.1 F 09/16/20 19:09 Pulse 86 09/16/20 19:09 Resp BP 118/69 09/16/20 19:09 Pulse Ox 96 09/16/20 19:09 - Orders/Labs/Meds Orders: Active Orders 24 hr Category Date Time Status CULTURE URINE [RM] Stat Lab 09/16/20 18:53 Received Labs: Laboratory Tests 09/16/20 Range/Units 18:53 Urine Color YELLOW Urine Appearance SLT CLOUDY Urine pH 6.0 (5.0-8.0) Ur Specific [place] >= 1.030 (1.001-1.035) Urine Protein TRACE H (NEGATIVE) mg/dL Urine Glucose (UA) NEGATIVE (NEGATIVE) mg/dL Urine Ketones NEGATIVE (NEGATIVE) mg/dL Urine Occult Blood LARGE H (NEGATIVE) Urine Nitrite NEGATIVE (NEGATIVE) Urine Bilirubin SMALL H (NEGATIVE) Urine Ictotest NEGATIVE Urine Urobilinogen 1.0 (<2.0) EU/dL Ur Leukocyte Esterase TRACE H (NEGATIVE) Urine RBC 4-8 (0-2/HPF) Urine WBC 10-15 (0-5/HPF) Ur Epithelial Cells MODERATE (NONE-FEW) Urine Bacteria 2+ H (NEGATIVE) Departure - Departure Time of Disposition: 19:26 Disposition: Home, Self-Care 01 Clinical Impression: UTI, Urinary tract infectious disease - Discharge Information Prescriptions: Sulfamethoxazole/Trimethoprim [Bactrim Ds Tablet] 1 each PO BID 5 Days #10 tablet Instructions: Urinary Tract Infection, Adult, [id number] Referrals: PCP,None [Primary Care Provider] - Forms: ED Department Discharge Additional Instructions: The following information is given to patients seen in the emergency department who are being discharged to home. This information is to outline your options for follow-up care. We provide all patients seen in our emergency department with a follow-up referral. The need for follow-up, as well as the timing and circumstances, are variable depending upon the specifics of your emergency department visit. If you don't have a primary care physician on staff, we will provide you with a referral. We always advise you to contact your personal physician following an emergency department visit to inform them of the circumstance of the visit and for follow-up with them and/or the need for any referrals to a consulting specialist. The emergency department will also refer you to a specialist when appropriate. This referral assures that you have the opportunity for follow-up care with a specialist. All of these measure are taken in an effort to provide you with optimal care, which includes your follow-up. Under all circumstances we always encourage you to contact your private physician who remains a resource for coordinating your care. When calling for follow-up care, please make the office aware that this follow-up is from your recent emergency room visit. If for any reason you are refused follow-up, please contact the [facility] Emergency Department at and asked to speak to the emergency department charge nurse. [facility] [address] [place] [id number] [facility] [address] [place] [id number] Thank you for choosing the [facility] emergency department in [place] for your medical needs today. It was a pleasure caring for you. Today you were seen in the emergency department for bladder infection. 1. You were evaluated today on an emergent basis. You have a bladder infection. Please take the antibiotic as directed. 2. You can alternate Tylenol and ibuprofen as needed for pain and fever management. 3. We encourage you to follow up with your primary care provider and/or recommended specialist in the next few days for re-evaluation and further care/management. 4. If your symptoms should worsen, new symptoms develop or any of the signs and symptoms we discussed should arise please return to the emergency room or call 911 (if needed). Sepsis Event Note (ED) - Focused Exam Vital Signs: Vital Signs Temp Pulse BP Pulse Ox 09/16/20 19:09 97.1 F 86 118/69 96 - My Orders Last 24 Hours: My Active Orders 09/16/20 18:53 CULTURE URINE [RM] Stat - Assessment/Plan Last 24 Hours: My Active Orders 09/16/20 18:53 CULTURE URINE [RM] Stat
[2020-09-16] MEDS ORDERED: Sulfamethoxazole/Trimethoprim 800-160 MG Tab PO ONE (19:26)
[2020-09-16] MEDS ORDERED: Phenazopyridine 200 MG Tab PO ONE (19:26)
[2020-09-16 19:57] VITALS: BP 115/80; PULSE 80
== END 2020-09-16 19:59 | disposition home or self-care (01) ==
LOC: MW.ED 18:42
DX: N39.0 Urinary tract infection, site not specified (principal)
CPT/HCPCS: 81001; 87086; 99283; A9270

== ENCOUNTER 2020-10-25 00:47 | Emergency (ER) | payer OTHER ==
[2020-10-25 01:06] VITALS: BP 134/83; PULSE 125
--- NOTE | 2020-10-25 01:09 | EDM.PDOC ---
ED HPI GENERAL MEDICAL PROBLEM - General Chief Complaint: Genitourinary Problem Stated Complaint: UTI Time Seen by Provider: 10/25/20 00:53 Source of Information: Reports: Patient History Limitations: Reports: No Limitations - History of Present Illness INITIAL COMMENTS - FREE TEXT/NARRATIVE: Patient is a 38-year-old female presents today for possible UTI. Patient states she has reoccurring UTIs today has some feelings of increased urination. Patient denies any pain to the area any vaginal discharge fever chills nausea vomiting or back pain. Pelvic Pain Score (Numeric/FACES): 5 - Related Data Allergies Allergy/AdvReac Type Severity Reaction Status Date / Time No Known Allergies Allergy Verified 10/25/20 00:58 Home Meds: Home Meds Ondansetron [Zofran] 4 mg PO Q4H PRN 5 Days #20 tab 09/27/19 [Rx] Cyclobenzaprine [Flexeril] 5 mg PO DAILY 09/16/20 [History] SUMAtriptan succinate [Imitrex] 50 mg PO ASDIRECTED PRN 09/16/20 [History] hydrOXYzine HCL [hydrOXYzine] 25 mg PO DAILY 09/16/20 [History] Sulfamethoxazole/Trimethoprim [Bactrim Ds Tablet] 1 each PO BID 5 Days #10 tablet 10/25/20 [Rx] Past Medical History - Past Health History Medical/Surgical History: Denies Medical/Surgical History HEENT History: Reports: None Cardiovascular History: Reports: Other (See Below) Other Cardiovascular History: hx of palpatations Respiratory History: Reports: None Gastrointestinal History: Reports: None Genitourinary History: Reports: UTI, Recurrent 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 elective AB Musculoskeletal History: Reports: Neck Pain, Chronic Neurological History: Reports: Other (See Below) Other Neuro History: headaches caused from neck pain Psychiatric History: Reports: Anxiety Endocrine/Metabolic History: Reports: None Hematologic History: Reports: None Immunologic History: Reports: None Oncologic (Cancer) History: Reports: None Dermatologic History: Reports: None - Infectious Disease History Infectious Disease History: Reports: None - Past Surgical History Head Surgeries/Procedures: Reports: None HEENT Surgical History: Reports: Cataract Surgery, Eye Surgery Other HEENT Surgeries/Procedures: 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, cataract surgery approx 4 yrs ago Cardiovascular Surgical History: Reports: None GI Surgical History: Reports: None Female Surgical History: Reports: Other (See Below) Other Female Surgeries/Procedures: cyst removed from vaginal area Endocrine Surgical History: Reports: None Neurological Surgical History: Reports: None Musculoskeletal Surgical History: Reports: None Oncologic Surgical History: Reports: None Social & Family History - Family History Family Medical History: No Pertinent Family History Cardiac: Reports: CAD, Hypertension, Other (See Below) Other Cardiac Family History: heart problems (patient dont know specificts of it) Respiratory: Reports: None GI: Reports: None : Reports: None OBGYN: Reports: None Musculoskeletal: Reports: None Endocrine/Metabolic: Reports: Diabetes, type II - Caffeine Use Caffeine Use: Reports: Soda - Recreational Drug Use Recreational Drug Use: No ED ROS GENERAL - Review of Systems Review Of Systems: See Below Constitutional: Reports: No Symptoms HEENT: Reports: No Symptoms Respiratory: Reports: No Symptoms Cardiovascular: Reports: No Symptoms Endocrine: Reports: No Symptoms GI/Abdominal: Reports: No Symptoms : Reports: Frequency Musculoskeletal: Reports: No Symptoms Skin: Reports: No Symptoms Neurological: Reports: No Symptoms Psychiatric: Reports: No Symptoms Hematologic/Lymphatic: Reports: No Symptoms Immunologic: Reports: No Symptoms ED EXAM, RENAL/ - Physical Exam Exam: See Below Exam Limited By: No Limitations General Appearance: Alert, WD/WN, No Apparent Distress Eye Exam: Bilateral Eye: EOMI Head: Atraumatic Respiratory/Chest: No Respiratory Distress Cardiovascular: Normal Peripheral Pulses GI/Abdominal: Normal Bowel Sounds, Soft, Non-Tender Neurological: Alert, Oriented, Normal Cognition, Normal Gait Course - Vital Signs Last Recorded V/S: Last Vital Signs Temp 96.9 F 10/25/20 00:50 Pulse 125 H 10/25/20 00:50 Resp 16 10/25/20 00:50 BP 134/83 10/25/20 00:50 Pulse Ox 100 10/25/20 00:50 - Orders/Labs/Meds Orders: Active Orders 24 hr Category Date Time Status CULTURE URINE [MREF] Stat Lab 10/25/20 01:00 Received UA W/MICROSCOPIC [URIN] Stat Lab 10/25/20 01:00 Results Sulfamethoxazole/Trimethoprim [Septra DS] Med 10/25/20 01:15 Once 1 tab PO ONETIME ONE Medication Orders Trimethoprim/Sulfamethoxazole (Sulfamethoxazole/Trimethoprim 800-160 Mg Tab) 1 tab PO ONETIME ONE Stop: 10/25/20 01:16 Labs: Laboratory Tests 10/25/20 Range/Units 01:00 Urine Color DARK YELLOW Urine Appearance CLOUDY Urine pH 7.0 (5.0-8.0) Ur Specific [place] 1.025 (1.001-1.035) Urine Protein 100 H (NEGATIVE) mg/dL Urine Glucose (UA) NEGATIVE (NEGATIVE) mg/dL Urine Ketones 15 H (NEGATIVE) mg/dL Urine Occult Blood LARGE H (NEGATIVE) Urine Nitrite POSITIVE H (NEGATIVE) Urine Bilirubin SMALL H (NEGATIVE) Urine Urobilinogen 1.0 (<2.0) EU/dL Ur Leukocyte Esterase SMALL H (NEGATIVE) Meds: Medications Generic Name Dose Route Start Last Admin Trade Name Freq PRN Reason Stop Dose Admin Trimethoprim/Sulfamethoxazole 1 tab 10/25/20 01:15 Sulfamethoxazole/Trimethoprim 800-160 Mg Tab PO 10/25/20 01:16 ONETIME ONE Departure - Departure Time of Disposition: 01:16 Disposition: Home, Self-Care 01 Clinical Impression: UTI (urinary tract infection) - Discharge Information *PRESCRIPTION DRUG MONITORING PROGRAM REVIEWED*: Not Applicable *COPY OF PRESCRIPTION DRUG MONITORING REPORT IN PATIENT SACHI: Not Applicable Prescriptions: Sulfamethoxazole/Trimethoprim [Bactrim Ds Tablet] 1 each PO BID 5 Days #10 tablet Instructions: Urinary Tract Infection, Adult, [id number] Referrals: Darian Urias [Primary Care Provider] - Forms: ED Department Discharge Additional Instructions: The following information is given to patients seen in the emergency department who are being discharged to home. This information is to outline your options for follow-up care. We provide all patients seen in our emergency department with a follow-up referral. The need for follow-up, as well as the timing and circumstances, are variable depending upon the specifics of your emergency department visit. If you don't have a primary care physician on staff, we will provide you with a referral. We always advise you to contact your personal physician following an emergency department visit to inform them of the circumstance of the visit and for follow-up with them and/or the need for any referrals to a consulting specialist. The emergency department will also refer you to a specialist when appropriate. This referral assures that you have the opportunity for follow-up care with a specialist. All of these measure are taken in an effort to provide you with optimal care, which includes your follow-up. Under all circumstances we always encourage you to contact your private physician who remains a resource for coordinating your care. When calling for follow-up care, please make the office aware that this follow-up is from your recent emergency room visit. If for any reason you are refused follow-up, please contact the [facility] Emergency Department at and asked to speak to the emergency department charge nurse. Please follow up with your primary care physician. If you do not have a primary care physician, see below: [facility] [address] [place] [id number] My [facility] [address] [place] [address] He was seen today for possible UTI. We did a urine shows positive. We sent home with Bactrim. Please take for the next 5 days. If you have any other concerns in the future about UTI please follow-up to primary care physician or go to urgent care. Please use the emergency department for emergencies. Sepsis Event Note (ED) - Evaluation Sepsis Screening Result: No Definite Risk - Focused Exam Vital Signs: Vital Signs Temp Pulse Resp BP Pulse Ox 10/25/20 00:50 96.9 F 125 H 16 134/83 100 - My Orders Last 24 Hours: My Active Orders 10/25/20 01:00 CULTURE URINE [MREF] Stat UA W/MICROSCOPIC [URIN] Stat 10/25/20 01:15 Sulfamethoxazole/Trimethoprim [Septra DS] 1 tab PO ONETIME ONE - Assessment/Plan Last 24 Hours: My Active Orders 10/25/20 01:00 CULTURE URINE [MREF] Stat UA W/MICROSCOPIC [URIN] Stat 10/25/20 01:15 Sulfamethoxazole/Trimethoprim [Septra DS] 1 tab PO ONETIME ONE Plan: Patient is a 39-year-old female who presents today for increased urination. We will send UA and treat if necessary.
[2020-10-25] MEDS ORDERED: Sulfamethoxazole/Trimethoprim 800-160 MG Tab PO ONE (01:15)
== END 2020-10-25 01:32 | disposition home or self-care (01) ==
LOC: MW.ED 00:47
DX: N39.0 Urinary tract infection, site not specified (principal)
CPT/HCPCS: 81001; 87086; 99283; A9270

== ENCOUNTER 2021-01-01 09:52 | Emergency (ER) | payer OTHER ==
[2021-01-01] MEDS ORDERED: Orphenadrine 60 MG/2 ML Inj IM ONE (10:48)
[2021-01-01] MEDS ORDERED: Ketorolac 60 MG/2 ML SDV IM ONE (10:48)
--- NOTE | 2021-01-01 12:27 | EDM.PDOC ---
ED HPI GENERAL MEDICAL PROBLEM - General Chief Complaint: Lower Extremity Injury/Pain Stated Complaint: HIP PAIN Time Seen by Provider: 01/01/21 09:57 Source of Information: Reports: Patient History Limitations: Reports: No Limitations - History of Present Illness INITIAL COMMENTS - FREE TEXT/NARRATIVE: HISTORY AND PHYSICAL: History of present illness: Patient is a 40-year-old female who presents emergency room today with concern of right-sided hip pain that has been ongoing for the past 1 month. Patient states that 1 month ago she "strained something "in her right hip and has had pain ever since. Patient states when it occurred she did have an x-ray at the clinic in [place] and was told that she had strained something. Patient states that she has continued to have the exact same right hip pain ever since and has not followed up since or seen an orthopedic provider. Patient denies any new trauma or injury or any other resuscitative symptoms. Patient states she does have a history of recurrent urinary tract infection. Patient states that she is currently menstruating right now. Patient has not taken any medication today for her symptoms. Patient denies fever, chills, chest pain, shortness of breath, or cough. Denies headache, neck stiff ness, change in vision, syncope, or near syncope. Denies nausea, vomiting, abdominal pain, diarrhea, constipation, or dysuria. Has not noted any blood in urine or stool. Patient has been eating and drinking appropriately. Review of systems: As per history of present illness and below otherwise all systems reviewed and negative. Past medical history: As per history of present illness and as reviewed below otherwise noncontributory. Surgical history: As per history of present illness and as reviewed below otherwise noncontributory. Social history: See social history for further information Family history: As per history of present illness and as reviewed below otherwise noncontributory. Physical exam: (Physical exam limited due to patient preference / request to stop examining-see note section below) General: Patient is alert, oriented, and in no acute distress. Patient laying on exam table, holding right outer hip alternating between laying flat and sitting on edge of bed. Vitals stable and reviewed by me. HEENT: Atraumatic, normocephalic, pupils equal and reactive bilaterally, negative for conjunctival pallor or scleral icterus, neck supple, nontender, trachea midline. No drooling or trismus noted. No meningeal signs. No hot potato voice noted. Lungs: Clear to auscultation, breath sounds equal bilaterally, chest nontender. Heart: S1S2, regular rate and rhythm without overt murmur Abdomen: Soft, nondistended, nontender. Negative for masses or hepatosplenomegaly. Negative for costovertebral tenderness. Pelvis: Stable nontender. Genitourinary: Deferred. Rectal: Deferred. Skin: Intact, warm, dry. No lesions or rashes noted. Extremities: No obvious deformity of the complete right or left lower extremity. Patient has significant pain to palpation of any touch of her right lower extremity from right hip down to the right cabrera with light touch and requests me to stop exam with no area of pain worse than other. Patient does have full active ROM noted on exam of bilateral lower extremities. DP/PT pulses intact bilaterally with cap refill < 2 seconds. No erythema, edema, ecchymosis, rashes, lesions noted to bilateral lower extremities. Otherwise, atraumatic, negative for cords or calf pain. Neurovascular unremarkable. Neuro: Awake, alert, oriented. Cranial nerves II through XII unremarkable. Cerebellum unremarkable. Motor and sensory unremarkable throughout. Exam nonfocal. Notes: Patient is a 40-year-old female presents emergency room today secondary to right hip pain x1 month. Upon arrival to the ED, patient is vitally stable but is alternating positions frequently on exam between lying flat and sitting on edge of bed. Patient does not let me fully examine her right hip as she wants me to "hurry the F up and "stop Fing touching me" as "it hurts so bad and get her pain medications now" and requests me to stop my physical exam. I did offer a hippelvis x-ray, however, patient declines. All risks versus benefits discussed with patient and expresses understanding. Urinalysis is clear of infection. Upon reevaluation of patient, she remains vitally stable and states that the therapeutics today "did nothing for her pain ". I did offer to send in diclofenac to the pharmacy but she states that "I already have anti-inflammatory medication and this does not work for my Fing pain". Patients significant other at bedside does state "[place] or Percocet would work better for her". I discussed with patient and significant other that given patient has been having hip discomfort x1 month, without any new change or injury, that narcotic medication is not indicated at this time. I did offer any nonnarcotic pain medication, however, patient declines any other non narcotic. I did discuss with patient being that she has been having symptoms for 1 month after a muscle injury/strain that occurred a month ago, that she should establish care/follow-up with an orthopedic provider for further evaluation and assessment of her right hip. I did discuss with patient that we did not obtain any hip or pelvis x-ray today so I did not complete my evaluation, however, she continues to decline this. All risks versus benefits discussed with patient and expresses understanding. Strict return precautions thoroughly discussed with patient. Discussed importance for follow-up with a primary care provider and orthopedic provider. Patient was placed on orthopedic follow-up list. Voices understanding and is agreeable to plan of care. Denies any further questions or concerns at this time. Diagnostics: Patent declines hippelvis XR, UA Therapeutics: Toradol, Norflex Prescription: None Impression: Right hip pain, chronic, subsequent encounter Plan: 1. Rest, ice, elevate the affected extremity/area. You can apply ice and or heat 15 minutes on, 15 minutes off. 2. Tylenol and/or Ibuprofen as directed for pain management or discomfort. 3. Follow up with the primary care provider /orthopedic provider as discussed. Return to the ED as needed and as discussed. Definitive disposition and diagnosis as appropriate pending reevaluation and review of above. Hip Pain Score (Numeric/FACES): 0 - Related Data Allergies Allergy/AdvReac Type Severity Reaction Status Date / Time No Known Allergies Allergy Verified 01/01/21 10:32 Home Meds: Home Meds Ondansetron [Zofran] 4 mg PO Q4H PRN 5 Days #20 tab 09/27/19 [Rx] Cyclobenzaprine [Flexeril] 5 mg PO DAILY 09/16/20 [History] SUMAtriptan succinate [Imitrex] 50 mg PO ASDIRECTED PRN 09/16/20 [History] hydrOXYzine HCL [hydrOXYzine] 25 mg PO DAILY 09/16/20 [History] Sulfamethoxazole/Trimethoprim [Bactrim Ds Tablet] 1 each PO BID 5 Days #10 tablet 10/25/20 [Rx] Past Medical History - Past Health History Medical/Surgical History: Denies Medical/Surgical History HEENT History: Reports: None Cardiovascular History: Reports: Other (See Below) Other Cardiovascular History: hx of palpatations Respiratory History: Reports: None Gastrointestinal History: Reports: None Genitourinary History: Reports: UTI, Recurrent 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 elective AB Musculoskeletal History: Reports: Neck Pain, Chronic Neurological History: Reports: Other (See Below) Other Neuro History: headaches caused from neck pain Psychiatric History: Reports: Anxiety Endocrine/Metabolic History: Reports: None Hematologic History: Reports: None Immunologic History: Reports: None Oncologic (Cancer) History: Reports: None Dermatologic History: Reports: None - Infectious Disease History Infectious Disease History: Reports: None - Past Surgical History Head Surgeries/Procedures: Reports: None HEENT Surgical History: Reports: Cataract Surgery, Eye Surgery Other HEENT Surgeries/Procedures: 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, cataract surgery approx 4 yrs ago Cardiovascular Surgical History: Reports: None GI Surgical History: Reports: None Female Surgical History: Reports: Other (See Below) Other Female Surgeries/Procedures: cyst removed from vaginal area Endocrine Surgical History: Reports: None Neurological Surgical History: Reports: None Musculoskeletal Surgical History: Reports: None Oncologic Surgical History: Reports: None Social & Family History - Family History Family Medical History: No Pertinent Family History Cardiac: Reports: CAD, Hypertension, Other (See Below) Other Cardiac Family History: heart problems (patient dont know specificts of it) Respiratory: Reports: None GI: Reports: None : Reports: None OBGYN: Reports: None Musculoskeletal: Reports: None Endocrine/Metabolic: Reports: Diabetes, type II - Tobacco Use Tobacco Use Status *Q: Unknown Ever Used Tobacco Second Hand Smoke Exposure: No - Caffeine Use Caffeine Use: Reports: None - Recreational Drug Use Recreational Drug Use: No Review of Systems - Review of Systems Review Of Systems: Comprehensive ROS is negative, except as noted in HPI. ED EXAM, GENERAL - Physical Exam Exam: See Below (see dictation) Course - Vital Signs Last Recorded V/S: Last Vital Signs Temp 97.4 F 01/01/21 12:40 Pulse 71 01/01/21 12:40 Resp 20 01/01/21 10:18 BP 115/73 01/01/21 12:40 Pulse Ox 99 01/01/21 12:40 - Orders/Labs/Meds Labs: Laboratory Tests 01/01/21 Range/Units 11:20 Urine Color YELLOW Urine Appearance CLEAR Urine pH 7.0 (5.0-8.0) Ur Specific [place] 1.015 (1.001-1.035) Urine Protein NEGATIVE (NEGATIVE) mg/dL Urine Glucose (UA) NEGATIVE (NEGATIVE) mg/dL Urine Ketones NEGATIVE (NEGATIVE) mg/dL Urine Occult Blood SMALL H (NEGATIVE) Urine Nitrite NEGATIVE (NEGATIVE) Urine Bilirubin NEGATIVE (NEGATIVE) Urine Urobilinogen 0.2 (<2.0) EU/dL Ur Leukocyte Esterase NEGATIVE (NEGATIVE) Urine RBC 0-2 (0-2/HPF) Urine WBC 0-1 (0-5/HPF) Ur Epithelial Cells FEW (NONE-FEW) Urine Bacteria FEW (NEGATIVE) Meds: Medications Discontinued Medications Generic Name Dose Route Start Last Admin Trade Name Freq PRN Reason Stop Dose Admin Ketorolac Tromethamine 60 mg 01/01/21 10:48 01/01/21 10:58 Ketorolac 60 Mg/2 Ml Sdv IM 01/01/21 10:49 60 mg ONETIME ONE Administration Orphenadrine Citrate 60 mg 01/01/21 10:48 01/01/21 10:58 Orphenadrine 60 Mg/2 Ml Inj IM 01/01/21 10:49 60 mg ONETIME ONE Administration Departure - Departure Time of Disposition: 12:27 Disposition: Home, Self-Care 01 Clinical Impression: Hip pain - Discharge Information Instructions: Hip Pain Referrals: PCP,None [Primary Care Provider] - Forms: ED Department Discharge Additional Instructions: The following information is given to patients seen in the emergency department who are being discharged to home. This information is to outline your options for follow-up care. We provide all patients seen in our emergency department with a follow-up referral. The need for follow-up, as well as the timing and circumstances, are variable depending upon the specifics of your emergency department visit. If you don't have a primary care physician on staff, we will provide you with a referral. We always advise you to contact your personal physician following an emergency department visit to inform them of the circumstance of the visit and for follow-up with them and/or the need for any referrals to a consulting specialist. The emergency department will also refer you to a specialist when appropriate. This referral assures that you have the opportunity for follow-up care with a specialist. All of these measure are taken in an effort to provide you with optimal care, which includes your follow-up. Under all circumstances we always encourage you to contact your private physician who remains a resource for coordinating your care. When calling for follow-up care, please make the office aware that this follow-up is from your recent emergency room visit. If for any reason you are refused follow-up, please contact the [facility] Emergency Department at and asked to speak to the emergency department charge nurse. [facility] Primary Care [address], [place] [address] [facility] Specialty Care - Orthopedic Clinic Professional Building [address] [place] [address], [address] [place] [address] 1. Rest, ice, elevate the affected extremity/area. You can apply ice and or heat 15 minutes on, 15 minutes off. 2. Tylenol and/or Ibuprofen as directed for pain management or discomfort. 3. Follow up with the primary care provider /orthopedic provider as discussed. Return to the ED as needed and as discussed. Sepsis Event Note (ED) - Evaluation Sepsis Screening Result: No Definite Risk
[2021-01-01 18:19] VITALS: BP 115/73; PULSE 71
== END 2021-01-01 12:40 | disposition home or self-care (01) ==
LOC: MW.ED 09:52
DX: G89.29 Other chronic pain (principal); M25.551 Pain in right hip
CPT/HCPCS: 81001; 96372; 99283; J1885; J2360

== ENCOUNTER 2021-02-04 14:39 | Emergency (ER) | payer OTHER ==
--- NOTE | 2021-02-04 17:04 | EDM.PDOC ---
ED HPI GENERAL MEDICAL PROBLEM - General Chief Complaint: Abdominal Pain Stated Complaint: UTI Time Seen by Provider: 02/04/21 16:45 - History of Present Illness INITIAL COMMENTS - FREE TEXT/NARRATIVE: History of present illness: [] This patient has 2 days of dysuria. She has had UTI in the past. Review of her recent chart shows that most recently in October she had B strep sensitive the beta lactams in 2018 as he had a UTI with E. coli sensitive also to have beta lactams. Review of systems: As per history of present illness and below otherwise all systems reviewed and negative. Past medical history: As per history of present illness and as reviewed below otherwise noncontributory. Surgical history: As per history of present illness and as reviewed below otherwise noncontributory. Social history: No reported history of drug or alcohol abuse. Family history: As per history of present illness and as reviewed below otherwise noncontributory. Physical exam: Constitutional - well developed, well-nourished and in no acute distress HEENT - normocephalic, no evidence of trauma - external nose and mouth normal - no mass in neck and no JVD - mucosae moist EYES - full EOM, PERRL, no icterus - no evidence of inflammation, injection, or drainage Respiratory - no respiratory distress, equal bilateral expansion Musculoskeletal no gross deformity of long bones or joints - no tenderness, swelling or edema Neurologic - Alert and oriented times four - CN II-XII grossly intact - motor sensory and coordination symmetrically normal Psychiatric - appropriate mood and affect with normal thought content Hematologic - No petechiae or purpura - mucosa appropriate color and sclera not pale - normal nail bed color and refill Integument - no rash or evidence of trauma - normal turgor Diagnostics: [] Therapeutics: [] Impression: [] Plan: [] Definitive disposition and diagnosis as appropriate pending reevaluation and review of above. bladder Pain Score (Numeric/FACES): 8 - Related Data Allergies Allergy/AdvReac Type Severity Reaction Status Date / Time No Known Allergies Allergy Verified 02/04/21 14:52 Home Meds: Home Meds Ondansetron [Zofran] 4 mg PO Q4H PRN 5 Days #20 tab 09/27/19 [Rx] Cyclobenzaprine [Flexeril] 5 mg PO DAILY 09/16/20 [History] SUMAtriptan succinate [Imitrex] 50 mg PO ASDIRECTED PRN 09/16/20 [History] hydrOXYzine HCL [hydrOXYzine] 25 mg PO DAILY 09/16/20 [History] Sulfamethoxazole/Trimethoprim [Bactrim Ds Tablet] 1 each PO BID 5 Days #10 tablet 10/25/20 [Rx] Amoxicillin 500 mg PO TID 7 Days #21 capsule 02/04/21 [Rx] Past Medical History - Past Health History Medical/Surgical History: Denies Medical/Surgical History HEENT History: Reports: None Cardiovascular History: Reports: Other (See Below) Other Cardiovascular History: hx of palpatations Respiratory History: Reports: None Gastrointestinal History: Reports: None Genitourinary History: Reports: UTI, Recurrent 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 elective AB Musculoskeletal History: Reports: Neck Pain, Chronic Neurological History: Reports: Other (See Below) Other Neuro History: headaches caused from neck pain Psychiatric History: Reports: Anxiety Endocrine/Metabolic History: Reports: None Hematologic History: Reports: None Immunologic History: Reports: None Oncologic (Cancer) History: Reports: None Dermatologic History: Reports: None - Infectious Disease History Infectious Disease History: Reports: None - Past Surgical History Head Surgeries/Procedures: Reports: None HEENT Surgical History: Reports: Cataract Surgery, Eye Surgery Other HEENT Surgeries/Procedures: 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, cataract surgery approx 4 yrs ago Cardiovascular Surgical History: Reports: None GI Surgical History: Reports: None Female Surgical History: Reports: Other (See Below) Other Female Surgeries/Procedures: cyst removed from vaginal area Endocrine Surgical History: Reports: None Neurological Surgical History: Reports: None Musculoskeletal Surgical History: Reports: None Oncologic Surgical History: Reports: None Social & Family History - Family History Family Medical History: No Pertinent Family History Cardiac: Reports: CAD, Hypertension, Other (See Below) Other Cardiac Family History: heart problems (patient dont know specificts of it) Respiratory: Reports: None GI: Reports: None : Reports: None OBGYN: Reports: None Musculoskeletal: Reports: None Endocrine/Metabolic: Reports: Diabetes, type II - Tobacco Use Tobacco Use Status *Q: Never Tobacco User - Caffeine Use Caffeine Use: Reports: None - Recreational Drug Use Recreational Drug Use: Yes ED ROS GENERAL - Review of Systems Review Of Systems: Comprehensive ROS is negative, except as noted in HPI. ED EXAM, GENERAL - Physical Exam Exam: See Below Free Text/Narrative:: My physical exam is in the HPI Course - Vital Signs Last Recorded V/S: Last Vital Signs Temp 36.3 C 02/04/21 14:50 Pulse 96 02/04/21 14:50 Resp 16 02/04/21 14:50 BP 106/69 02/04/21 14:50 Pulse Ox 99 02/04/21 14:50 - Orders/Labs/Meds Orders: Active Orders 24 hr Category Date Time Status CULTURE URINE [MREF] Stat Lab 02/04/21 15:45 Received Labs: Laboratory Tests 02/04/21 Range/Units 15:45 Urine Color ORANGE Urine Appearance SLT CLOUDY Urine pH 6.5 (5.0-8.0) Ur Specific [place] 1.025 (1.001-1.035) Urine Protein 30 H (NEGATIVE) mg/dL Urine Glucose (UA) 100 H (NEGATIVE) mg/dL Urine Ketones NEGATIVE (NEGATIVE) mg/dL Urine Occult Blood LARGE H (NEGATIVE) Urine Nitrite POSITIVE H (NEGATIVE) Urine Bilirubin NEGATIVE (NEGATIVE) Urine Urobilinogen 2.0 H (<2.0) EU/dL Ur Leukocyte Esterase SMALL H (NEGATIVE) Urine RBC 40-50 (0-2/HPF) Urine WBC 50-60 (0-5/HPF) Ur Epithelial Cells FEW (NONE-FEW) Urine Bacteria FEW (NEGATIVE) Departure - Departure Time of Disposition: 17:03 Disposition: Home, Self-Care 01 Condition: Good Clinical Impression: UTI (urinary tract infection) - Discharge Information Prescriptions: Amoxicillin 500 mg PO TID 7 Days #21 capsule Instructions: Urinary Tract Infection, Adult, [id number] Referrals: Darian Urias [Primary Care Provider] - Additional Instructions: Her prescription was sent to [facility] pharmacy and culture was sent to the lab. Drink tons of fluids. [facility] - Primary Care [address] [place] [address] [id number] [address] [address] The following information is given to patients seen in the emergency department who are being discharged to home. This information is to outline your options for follow-up care. We provide all patients seen in our emergency department with a follow-up referral. The need for follow-up, as well as the timing and circumstances, are variable depending upon the specifics of your emergency department visit. If you don't have a primary care physician on staff, we will provide you with a referral. We always advise you to contact your personal physician following an emergency department visit to inform them of the circumstance of the visit and f or follow-up with them and/or the need for any referrals to a consulting specialist. The emergency department will also refer you to a specialist when appropriate. This referral assures that you have the opportunity for follow-up care with a specialist. All of these measure are taken in an effort to provide you with optimal care, which includes your follow-up. Under all circumstances we always encourage you to contact your private physician who remains a resource for coordinating your care. When calling for follow-up care, please make the office aware that this follow-up is from your recent emergency room visit. If for any reason you are refused follow-up, please contact the [facility] Emergency Department at and asked to speak to the emergency department charge nurse. Sepsis Event Note (ED) - Evaluation Sepsis Screening Result: No Definite Risk - Focused Exam Vital Signs: Vital Signs Temp Pulse Resp BP Pulse Ox 02/04/21 14:50 36.3 C 96 16 106/69 99 - My Orders Last 24 Hours: My Active Orders 02/04/21 15:45 CULTURE URINE [MREF] Stat - Assessment/Plan Last 24 Hours: My Active Orders 02/04/21 15:45 CULTURE URINE [MREF] Stat
[2021-02-04 17:11] VITALS: BP 121/73; PULSE 87
== END 2021-02-04 17:11 | disposition home or self-care (01) ==
LOC: MW.ED 14:39
DX: N39.0 Urinary tract infection, site not specified (principal)
CPT/HCPCS: 81001; 87086; 87088; 87186; 99283

== ENCOUNTER 2021-07-03 12:33 | Emergency (ER) | payer OTHER ==
[2021-07-03 13:08] VITALS: BP 110/75; PULSE 104
== END 2021-07-03 13:08 | disposition home or self-care (01) ==
LOC: MW.ED 12:33
DX: K04.7 Periapical abscess without sinus (principal)
CPT/HCPCS: 99283

== ENCOUNTER 2021-09-09 10:56 | Emergency (ER) | payer OTHER ==
[2021-09-09 11:09] VITALS: BP 141/84; PULSE 117
== END 2021-09-09 11:17 ==
LOC: MW.ED 10:56
DX: Z02.79 Encounter for issue of other medical certificate (principal); Z79.899 Other long term (current) drug therapy
CPT/HCPCS: 99283

== ENCOUNTER 2021-09-13 14:46 | Emergency (ER) | payer OTHER ==
[2021-09-13 15:06] VITALS: BP 124/75; PULSE 112
[2021-09-13] MEDS ORDERED: Acetaminophen 500 MG Tab PO ONE (15:12)
== END 2021-09-13 15:39 | disposition home or self-care (01) ==
LOC: MW.ED 14:46
DX: M25.552 Pain in left hip (principal); G89.29 Other chronic pain; Z79.899 Other long term (current) drug therapy
CPT/HCPCS: 99283; A9270

== ENCOUNTER 2021-12-05 13:23 | Emergency (ER) | payer OTHER ==
[2021-12-05 13:41] VITALS: BP 124/87; PULSE 111
[2021-12-05] MEDS ORDERED: SUMAtriptan 50 MG Tab PO ONE (13:43)
== END 2021-12-05 14:16 | disposition home or self-care (01) ==
LOC: MW.ED 13:23
DX: G43.909 Migraine, unspecified, not intractable, without status migrainosus (principal); Z79.899 Other long term (current) drug therapy
CPT/HCPCS: 99283; A9270

== ENCOUNTER 2022-04-22 14:14 | Emergency (ER) | payer OTHER ==
[2022-04-22 15:07] VITALS: BP 116/65; PULSE 102
[2022-04-22 15:50] LABS: CORONAVIRUS COVID-19 NAA NEGATIVE (NEGATIVE); INFLUENZA A NAA NEGATIVE (NEGATIVE); INFLUENZA B NAA NEGATIVE (NEGATIVE); RESPIRATORY SYNCYTIAL VIR NAA NEGATIVE (NEGATIVE)
[2022-04-22] MEDS ORDERED: Ketorolac 60 MG/2 ML SDV IM ONE (15:52)
[2022-04-22] MEDS ORDERED: Ondansetron 4 MG Tab.DIS PO ONE (15:52)
[2022-04-22] MEDS ORDERED: Ketorolac 30 MG/ML SDV IVPUSH ONE (15:53)
[2022-04-22] MEDS ORDERED: Sodium Chloride 0.9% 1,000 ML IV ONE (15:53)
[2022-04-22] MEDS ORDERED: Ondansetron 4 MG/2 ML SDV IVPUSH ONE (15:53)
[2022-04-22 16:53] LABS: CARBON DIOXIDE,CO2 27.4 mmol/L (21.0-32.0); POTASSIUM,K 4.1 mmol/L (3.5-5.1)
== END 2022-04-22 17:23 | disposition home or self-care (01) ==
LOC: MW.ED 14:14
DX: J11.1 Influenza due to unidentified influenza virus with other respiratory manifestations (principal); F17.210 Nicotine dependence, cigarettes, uncomplicated; Z20.822 Contact with and (suspected) exposure to COVID-19; Z79.899 Other long term (current) drug therapy
CPT/HCPCS: 0241U; 36415; 71045; 80053; 85025; 96361; 96372; 96374; 96375; 99284; J1885; J2405; J7030

== ENCOUNTER 2022-04-25 08:56 | Emergency (ER) | payer OTHER ==
[2022-04-25] MEDS ORDERED: Ketorolac 30 MG/ML SDV IM ONE (09:23)
[2022-04-25 10:00] VITALS: BP 123/89; PULSE 127
== END 2022-04-25 11:01 | disposition home or self-care (01) ==
LOC: MW.ED 08:56
DX: N30.00 Acute cystitis without hematuria (principal)
CPT/HCPCS: 81001; 96372; 99283; J1885

== ENCOUNTER 2022-04-29 14:32 | Emergency (ER) | payer OTHER ==
[2022-04-29] MEDS ORDERED: Orphenadrine 60 MG/2 ML Inj IM ONE (20:34)
[2022-04-29] MEDS ORDERED: Ketorolac 60 MG/2 ML SDV IM ONE (20:34)
[2022-04-29 21:07] VITALS: BP 110/75; PULSE 82
== END 2022-04-29 21:05 | disposition home or self-care (01) ==
LOC: MW.ED 14:32
DX: G89.29 Other chronic pain (principal); M54.50 Low back pain, unspecified; Z79.899 Other long term (current) drug therapy
CPT/HCPCS: 96372; 99283; J1885; J2360

== ENCOUNTER 2022-06-07 11:50 | Emergency (ER) | payer OTHER ==
[2022-06-07] MEDS ORDERED: Ondansetron 4 MG/2 ML SDV IVPUSH ONE (12:07)
[2022-06-07] MEDS ORDERED: Sodium Chloride 0.9% 1,000 ML IV ONE (12:07)
[2022-06-07 12:57] LABS: CARBON DIOXIDE,CO2 26.7 mmol/L (21.0-32.0); POTASSIUM,K 3.8 mmol/L (3.5-5.1)
[2022-06-07 13:19] LABS: CORONAVIRUS COVID-19 NAA NEGATIVE (NEGATIVE); INFLUENZA A NAA NEGATIVE (NEGATIVE); INFLUENZA B NAA NEGATIVE (NEGATIVE); RESPIRATORY SYNCYTIAL VIR NAA NEGATIVE (NEGATIVE)
[2022-06-07 14:36] VITALS: BP 115/61; PULSE 82
== END 2022-06-07 14:36 | disposition home or self-care (01) ==
LOC: MW.ED 11:50
DX: R11.2 Nausea with vomiting, unspecified (principal); Z20.822 Contact with and (suspected) exposure to COVID-19
CPT/HCPCS: 0241U; 36415; 80053; 80305; 81001; 81025; 83690; 85025; 96361; 96374; 99284; J2405; J7030

== ENCOUNTER 2022-10-22 20:59 | Emergency (ER) | payer OTHER ==
[2022-10-22] MEDS ORDERED: Bupivacaine 0.5% 10 ML SDV INJECT ONE (23:15)
[2022-10-22] MEDS ORDERED: Lidocaine 1% 5 ML VIAL INJECT ONE (23:15)
[2022-10-22] MEDS ORDERED: Penicillin V Potassium 500 MG Tab PO STA (23:16)
[2022-10-22] MEDS ORDERED: Ibuprofen 400 MG Tab PO ONE (23:26)
[2022-10-22] MEDS ORDERED: Ondansetron 4 MG Tab.DIS PO ONE (23:26)
[2022-10-22] MEDS ORDERED: Acetaminophen/HYDROcodone 325-5 MG Tab PO ONE (23:26)
[2022-10-22 23:44] VITALS: BP 131/95; PULSE 83
== END 2022-10-22 23:44 | disposition home or self-care (01) ==
LOC: MW.ED 20:59
DX: K04.7 Periapical abscess without sinus (principal); Z79.899 Other long term (current) drug therapy
CPT/HCPCS: 99282; A9270

== ENCOUNTER 2023-10-02 10:55 | Emergency (ER) | payer OTHER ==
[2023-10-02 11:27] VITALS: BP 136/87
[2023-10-02 11:31] VITALS: PULSE 96
[2023-10-02 13:07] LABS: APPEARANCE,URINE CLEAR; BILIRUBIN,URINE NEGATIVE (NEGATIVE); COLOR,URINE YELLOW; GLUCOSE,URINE NEGATIVE (NEGATIVE); KETONES,URINE 15 mg/dL (NEGATIVE); LEUKOCYTE ESTERASE,URINE SMALL (NEGATIVE); NITRITE,URINE POSITIVE (NEGATIVE); OCCULT BLOOD,URINE LARGE (NEGATIVE); PROTEIN,URINE TRACE mg/dL (NEGATIVE)
[2023-10-02 13:16] LABS: BACTERIA,URINE FEW (NEGATIVE); EPITHELIAL CELLS,URINE FEW (NONE-FEW); WBC,URINE 15-20 (0-5/HPF)
== END 2023-10-02 12:35 | disposition home or self-care (01) ==
LOC: MW.ED 10:55
DX: N39.0 Urinary tract infection, site not specified (principal); Z79.899 Other long term (current) drug therapy; Z75.8 Other problems related to medical facilities and other health care
CPT/HCPCS: 81001; 99283

== ENCOUNTER 2024-08-28 14:06 | Emergency (ER) | payer OTHER ==
[2024-08-28] MEDS: cloNIDine 0.1 MG Tab PO ONE (15:52)
[2024-08-28 16:45] VITALS: BP 110/77; PULSE 78
== END 2024-08-28 16:45 | disposition home or self-care (01) ==
LOC: MW.ED 14:06
DX: F11.23 Opioid dependence with withdrawal (principal); Z79.899 Other long term (current) drug therapy
CPT/HCPCS: 99283; A9270; 99282